=== PATIENT | female | born 1950 | race African-American/Black ===

== ENCOUNTER 2016-08-20 18:11 | Observation (INO) | payer MEDICARE ==
[~2016-08-20] VITALS: Ht 152.4 cm; Wt 86.7 kg
[~2016-08-20 18:11] MED LIST: AMLO5TAB2 PO; ASPI325T4 PO; CEFP200T PO; CETI10TA22 PO; CLOP75TA PO; FURO-68 PO; GABA-586 PO; HYDR-965 PO; INSU100I13 SQ; INSU100I17 SQ; LISI-334 PO; METO50TA10 PO; MONT10TA9 PO; MULT-658 PO; OMEP20TA63 PO; PANT40TA5 PO; SENN-37 PO; SIMV40TA3 PO
[2016-08-20] MEDS: IV NORMAL SALINE 1000ML BAG 1,000 ML IV SCH (18:30)
[2016-08-20 19:53] VITALS: BP 125/47
[2016-08-20] MEDS ORDERED: ACETYLCYSTEINE 20% ORAL SOLN 600 MG/3 ML SYRINGE. PO SCH (21:00)
[2016-08-20 22:17] LABS: BASO # 0.1 x10^3/uL (0.0-0.2); BASO % 1 % (0-3); EOS % 3 % (0-3); HEMATOCRIT 35.5 % (36.0-47.0); HEMOGLOBIN 11.5 g/dL (12.0-15.5); LYMPH # 1.8 x10^3/uL (1.0-4.8); LYMPH % 30 % (24-48); MEAN CORPUSCULAR HEMOGLOBIN 30 pg (25-35); MEAN CORPUSCULAR HGB CONC 32 g/dL (31-37); MEAN CORPUSCULAR VOLUME 93 fL (79-100); MONO % 5 % (0-9); NEUT % 61 % (31-73); PLATELET COUNT 161 x10^3/uL (140-400); RED BLOOD COUNT 3.84 x10^6/uL (3.50-5.40); RED CELL DISTRIBUTION WIDTH 13.7 % (11.5-14.5); WHITE BLOOD COUNT 6.2 x10^3/uL (4.0-11.0)
[2016-08-20 22:24] LABS: PROTHROMBIN TIME PATIENT 12.9 SEC (11.7-14.0)
[2016-08-20 22:42] LABS: CALCIUM 9.1 mg/dL (8.5-10.1); CREATININE 1.4 mg/dL (0.6-1.0); GFR 45.4
[2016-08-20 23:05] VITALS: BP 143/62
[2016-08-21] VITALS (12 sets, daily range): BP systolic 109–150; BP diastolic 56–85
[2016-08-21 06:46] LABS: CREATININE 1.1 mg/dL (0.6-1.0); GFR 59.9; POTASSIUM 4.1 mmol/L (3.5-5.1)
[2016-08-21] MEDS ORDERED: DEXTROSE 50% 25 GM / 50ML DISP.SYRIN. IV ONE (07:35)
--- NOTE | 2016-08-21 08:52 | PDOC ---
MODERATE SEDATION ASSESSMENT RISKS/ALTERNATIVES Risks/Alternatives Risks and alternatives of this type of sedation and procedure discussed with: RISK/ALTERNATIVES: Patient H & P ON CHART H & P H & P on chart and reviewed for co-morbid conditions and appropriate labs. H&P ON CHART: Yes STATUS PREG STATUS ASSESSED: N/A MEDS/ALLERGIES REVIEWED Meds/Allergies Reviewed Medications and Allergies including time and route of recently administered narcotics and sedatives. MEDS/ALLERGIES REVIEWED: Yes ASA RATING ASA RATING: II AIRWAY ASSESSMENT Airway Assessment Airway patency, oral function limitations, presence of caps, crowns, dentures, partials, and ability to extend neck assessed. AIRWAY ASSESSMENT: Yes MALLAMPATI SCORE MALLAMPATI SCORE: II PRE-SEDATION ASSESSMENT PRE-SEDATION ASSESSMENT: Yes RUSSELL YOUNG MD Aug 21, 2016 08:52
[2016-08-21] MEDS ORDERED: NITROGLYCERIN 4 MG/20 ML SYRINGE for CATH LAB. ONE (09:00)
[2016-08-21] MEDS ORDERED: DIPHENHYDRAMINE 50 MG/ML VIAL IVP ONE (09:30)
[2016-08-21] MEDS ORDERED: HEPARIN for IV BOLUS 10,000 UNIT/10 ML VIAL. IV ONE (09:30)
[2016-08-21] MEDS ORDERED: LIDOCAINE 2% 20 ML VIAL. IJ ONE (09:30)
[2016-08-21] MEDS ORDERED: IOHEXOL 300 MG/ML 100ML VIAL. IART ONE (09:30)
[2016-08-21] MEDS ORDERED: FENTANYL PF 250 MCG/5 ML VIAL. IV ONE (09:30)
[2016-08-21] MEDS ORDERED: DILTIAZEM IV PUSH 10 MG, NITROGLYCERIN 4MG SYRINGE 4 MG, HEPARIN S0DIUM 10,000 UNIT, VI... INT CAT ONE ×5 (09:30)
[2016-08-21] MEDS ORDERED: MIDAZOLAM HCL/PF 5 MG/5 ML VIAL IV ONE (09:30)
[2016-08-21] MEDS ORDERED: NITROGLYCERIN 200 MCG/2 ML SYRINGE FOR CATH/VASC LAB. IART ONE (10:00)
[2016-08-21] MEDS ORDERED: IODIXANOL 320 MG/ML 100 ML VIAL. IART ONE (10:15)
[2016-08-21] MEDS ORDERED: PROTAMINE 50 MG/5 ML VIAL. IV ONE (10:45)
[2016-08-21] MEDS: ACETYLCYSTEINE 20% ORAL SOLN 600 MG/3 ML SYRINGE. PO SCH ×2 (10:45→20:59)
[2016-08-21] MEDS ORDERED: ACETAMINOPHEN 325 MG TABLET. PO PRN (10:45)
--- NOTE | 2016-08-21 11:10 | CARD ---
APPROVED REPORT Patient StatusOUT-PATIENT Manager Trainee: Blake Zelaya RT (R) Procedure(s) performed: Successful balloon CIGAR HEAD STRINGER to the right superficial femoral artery via a right po pliteal access. INDICATION FOR PROCEDURE The indication(s) include : 66-year-old female with peripheral vascular disease with claudication rec ently underwent atherectomy/CIGAR HEAD STRINGER to left superficial femoral artery on 06/18/2017. She presented today for staged CIGAR HEAD STRINGER to the long chronic total occlusion involving her right superficial femoral artery vi a popliteal access.. PROCEDURE NARRATIVE After explaining the risks, benefits and alternative options, informed consent was obtained from shaka ent. Patient was brought to the cardiac Junior [employer] Teacher and her right popliteal fossa was prepped and draped in the usual fashion. 10 mL of 2% lidocaine was infiltrated into the skin and subcutaneous tissues f or local anesthesia. Under vascular ultrasound guidance, the popliteal artery was accessed and a 6 Fr ench sheath was inserted. The long chronic total occlusion involving the proximal and mid segments of the right superficial femoral artery was crossed with a 0.035 age glide wire with backup support fro m full [place] glide catheter. Contrast injections to the glide catheter conformed intraluminal positi on distally. The lesion was then dilated with 4.0 x 100 followed by 5.0 x 150 mm [place] balloon. Foll ow-up angiography showed resolution of the stenosis to 0%. The sheath in the right popliteal artery s eemed to be occluding the lumen and hence this was exchanged to a 5 [place] dilator and contrast injec tions were performed that revealed good three vessel runoff below the knee. There was slight extravas ation rom around the dilator secondary to the smaller [place] dilator used. Hemostasis was achieved us ing manual compression. 50 mg of intravenous protamine was administered at the end of the procedure to reverse heparin. Patient tolerated the procedure well. There were no immediate complications. Conclusion Successful balloon CIGAR HEAD STRINGER to the right superficial femoral artery via right popliteal access. Recommendations Risk factor modification.
[2016-08-21] MEDS: IV 1/2 NORMAL SALINE 1,000 ML IV SCH ×2 (11:51→21:00)
[2016-08-21] MEDS ORDERED: HYDROCODONE/APAP 5/325MG TABLET. PO PRN (13:00)
[2016-08-21] MEDS: HYDROCODONE/APAP 5/325MG TABLET. PO PRN ×2 (13:11→21:56)
[2016-08-21] MEDS: IV NORMAL SALINE 1000ML BAG 1,000 ML IV SCH (14:30)
[2016-08-22 03:20] VITALS: BP 156/71
[2016-08-22] MEDS: HYDROCODONE/APAP 5/325MG TABLET. PO PRN ×2 (04:47→10:17)
[2016-08-22 05:31] LABS: CREATININE 1.3 mg/dL (0.6-1.0); GFR 49.4; POTASSIUM 3.8 mmol/L (3.5-5.1)
[2016-08-22 07:00] VITALS: BP 146/58
[2016-08-22] MEDS: ACETYLCYSTEINE 20% ORAL SOLN 600 MG/3 ML SYRINGE. PO SCH (09:06)
[2016-08-22 11:00] VITALS: BP 189/75
--- NOTE | 2016-08-22 11:02 | PDOC3 ---
Discharge Summary Visit Information Date of Admission: Aug 20, 2016 Date of Discharge: Aug 22, 2016 Admitting Diagnosis Comment: 1. PAD with bilateral chronic total occlusions of SFa 2. CAD, [place] artery, without angina 3. hypertension, benign essential 4. hyperlipidemia 5. DM, II, insulin requiring, with diabetic nephropathy and retinopathy Final Diagnosis Problems Medical Problems: (1) Peripheral vascular disease; S/P LIBRARY CONSULTANT of right SFA via right popliteal approach Status: Acute 2. CAD, [place] artery, without angina 3. hypertension, benign essential 4. hyperlipidemia 5. DM, II, insulin requiring, with diabetic nephropathy and retinopathy Brief Hospital Course Allergies Allergies Coded Allergies Type Severity Reaction Last Updated Verified No Known Drug Allergies 05/13/16 No Vital Signs Vital Signs Date Time Temp Pulse Resp B/P Pulse Ox O2 Delivery O2 Flow Rate FiO2 08/22/16 10:17 Room Air 08/22/16 07:00 97.9 72 20 146/58 97 97.9 Lab Results Laboratory Tests Test 08/20/16 22:00 08/21/16 06:22 08/21/16 07:25 08/21/16 07:43 White Blood Count 6.2x10^3/uL (4.0-11.0) Red Blood Count 3.84x10^6/uL (3.50-5.40) Hemoglobin 11.5g/dL (12.0-15.5) Hematocrit 35.5% (36.0-47.0) Mean Corpuscular Volume 93fL (79-100) Mean Corpuscular Hemoglobin 30pg (25-35) Mean Corpuscular Hemoglobin Concent 32g/dL (31-37) Red Cell Distribution Width 13.7% (11.5-14.5) Platelet Count 161x10^3/uL (140-400) Neutrophils (%) (Auto) 61% (31-73) Lymphocytes (%) (Auto) 30% (24-48) Monocytes (%) (Auto) 5% (0-9) Eosinophils (%) (Auto) 3% (0-3) Basophils (%) (Auto) 1% (0-3) Neutrophils # (Auto) 3.8x10^3uL (1.8-7.7) Lymphocytes # (Auto) 1.8x10^3/uL (1.0-4.8) Monocytes # (Auto) 0.3x10^3/uL (0.0-1.1) Eosinophils # (Auto) 0.2x10^3/uL (0.0-0.7) Basophils # (Auto) 0.1x10^3/uL (0.0-0.2) Prothrombin Time 12.9SEC (11.7-14.0) Prothromb Time International Ratio 1.0 (0.8-1.1) Activated Partial Thromboplast Time 32SEC (24-38) Sodium Level 141mmol/L (136-145) 145mmol/L (136-145) Potassium Level 4.0mmol/L (3.5-5.1) 4.1mmol/L (3.5-5.1) Chloride Level 104mmol/L (98-107) 109mmol/L (98-107) Carbon Dioxide Level 31mmol/L (21-32) 27mmol/L (21-32) Anion Gap 6 (6-14) 9 (6-14) Blood Urea Nitrogen 29mg/dL (7-20) 25mg/dL (7-20) Creatinine 1.4mg/dL (0.6-1.0) 1.1mg/dL (0.6-1.0) Estimated GFR (Cockcroft-Gault) 45.4 59.9 Glucose Level 151mg/dL (70-99) 60mg/dL (70-99) Calcium Level 9.1mg/dL (8.5-10.1) 9.0mg/dL (8.5-10.1) Glucose (Fingerstick) 57mg/dL (70-99) 61mg/dL (70-99) Test 08/21/16 07:58 08/21/16 08:42 08/21/16 10:12 08/21/16 12:17 Glucose (Fingerstick) 128mg/dL (70-99) 122mg/dL (70-99) 108mg/dL (70-99) Activated Clotting Time 318sec (92-181) Test 08/21/16 17:21 08/21/16 20:53 08/22/16 04:07 08/22/16 07:58 Glucose (Fingerstick) 209mg/dL (70-99) 240mg/dL (70-99) 143mg/dL (70-99) Sodium Level 142mmol/L (136-145) Potassium Level 3.8mmol/L (3.5-5.1) Chloride Level 105mmol/L (98-107) Carbon Dioxide Level 29mmol/L (21-32) Anion Gap 8 (6-14) Blood Urea Nitrogen 17mg/dL (7-20) Creatinine 1.3mg/dL (0.6-1.0) Estimated GFR (Cockcroft-Gault) 49.4 Glucose Level 172mg/dL (70-99) Calcium Level 9.0mg/dL (8.5-10.1) Laboratory Tests Test 08/21/16 12:17 08/21/16 17:21 08/21/16 20:53 08/22/16 04:07 Glucose (Fingerstick) 108mg/dL (70-99) 209mg/dL (70-99) 240mg/dL (70-99) Sodium Level 142mmol/L (136-145) Potassium Level 3.8mmol/L (3.5-5.1) Chloride Level 105mmol/L (98-107) Carbon Dioxide Level 29mmol/L (21-32) Anion Gap 8 (6-14) Blood Urea Nitrogen 17mg/dL (7-20) Creatinine 1.3mg/dL (0.6-1.0) Estimated GFR (Cockcroft-Gault) 49.4 Glucose Level 172mg/dL (70-99) Calcium Level 9.0mg/dL (8.5-10.1) Test 08/22/16 07:58 Glucose (Fingerstick) 143mg/dL (70-99) Brief Hospital Course Ms. Iniguez is a 66 old female with with known PAD and previous LLE intervention in June 2016. At that time she was found to have bilateral chronic total occlusions of the SFa. The left side was treated then. She was admitted on for prehydration to reduce the risk of GEORGE due to her CKD history. She underwent LIBRARY CONSULTANT of the right SFa on 08/21/2016 via popliteal approach. Hydration and mucomyst continued post-procedure and she was monitored overnight. Cr was 1.4 on admission and is now 1.3. Popliteal site C/D/I. Foot warm with weakly palpable pulse. Discharge Information Condition at Discharge: Stable Follow Up: Weeks (4 weeks with cardiology as scheduled; 7 - 10 days with PCP) Disposition/Orders: D/C to Home Scheduled Amlodipine Besylate (Amlodipine Besylate) 5 MG PO DAILY (Reported) Aspirin (Aspirin) 1 TAB PO DAILY (Reported) Cetirizine Hcl (Zyrtec) 1 TAB PO DAILY (Reported) Clopidogrel Bisulfate (Clopidogrel) 75 MG PO DAILYWBKFT Gabapentin (Neurontin) 300 MG PO TID (Reported) Insulin Aspart (Novolog Flexpen) 13 UNIT SQ TIDAC (Reported) Insulin Glargine,Hum.rec.anlog (Lantus Solostar) 87 UNIT SQ DAILY (Reported) Lisinopril (Lisinopril) 1.5 TAB PO BID (Reported) Metoprolol Succinate (Metoprolol Succinate) 100 MG PO DAILY (Reported) Montelukast Sodium (Montelukast Sodium Tablet) 1 TAB PO DAILY (Reported) Multivits-Min/Fa/Lycopene/Lut (Centrum Silver Tablet) 1 TAB PO DAILY (Reported) Pantoprazole Sodium (Pantoprazole Sodium) 40 MG PO DAILYAC Sennosides/Docusate Sodium (Senokot-S Tablet) 1 TAB PO BID (Reported) Simvastatin (Simvastatin) 1 TAB PO QHS (Reported) Scheduled PRN Hydrocodone/Apap 7.5-325 ([place] 7.5-325 Tablet) 1 TAB PO Q4HRS PRN PRN PAIN ( Reported) Patient Instructions Patient Instructions GENERAL INSTRUCTIONS: 1. Your dressing should be removed prior to leaving the hospital. 2. It is OK to shower the day after your procedure. 3. If you received stents, be sure to carry your stent information card with you in your wallet/purse at all times. 4. Call the office immediately at [phone] if you notice any fever or if there is redness, worsening tenderness/pain, increased bruising, or drainage from the puncture site. 5. Should you have bleeding from the site, lie down immediately & put pressure on the site. The pressure should be hard enough to stop the bleeding. Have the nearest person call 91. DO NOT try to drive to the ER with active bleeding. 6. If you notice a change in color, coolness to touch, or loss of feeling in the affected extremity, come to the emergency room. Please have someone drive you or call 911 if no one is available. DO NOT drive yourself. 7. If you normally take glucophage (metformin), please do not take this medicine for 48 hours following your procedure. 8. DO NOT STOP TAKING YOUR PLAVIX OR ASPIRIN UNLESS IT IS CLEARED BY A COLLECTION SYSTEMS TECHNICIAN OF YOUR PLATE STACKER HAND AT OUR OFFICE. 9. QUIT SMOKING: the [place] [employer], [place] [employer], & [place] [employer] have cessation resources available on their websites 10. Please have someone available to drive you home from the hospital as you may be limited by sedation medications given during the procedure. Femoral (Groin) access: 1. Do no lifting, pushing, pulling, bending, stooping, or recurrent stair climbing for 10 days following your procedure. 2. Once past the first 10 days, do not do any HEAVY exertion or lifting for one week following the procedure. No gym workouts, running, lifting greater than a gallon of milk, etc 3. Do not submerge in bath or pool for one week. OK to drive 3 days following your procedure, but if going long distance, do not go alone & take hourly breaks to get out of car and walk around. Call the office at [phone] for any questions or concerns. MARYSE PUENTE APRN Aug 22, 2016 11:02
== END 2016-08-22 12:07 | disposition home or self-care (01) ==
LOC: INTOOBSV 18:11 → 2 SOUTH 18:11
PROVIDERS: ADMIT Internal Medicine Cardiovascular Disease; ATTEND Internal Medicine Cardiovascular Disease
DX: I25.10 Atherosclerotic heart disease of native coronary artery without angina pectoris (principal); I73.89 Other specified peripheral vascular diseases; I74.3 Embolism and thrombosis of arteries of the lower extremities; I10 Essential (primary) hypertension; E78.5 Hyperlipidemia, unspecified; E11.22 Type 2 diabetes mellitus with diabetic chronic kidney disease; E11.319 Type 2 diabetes mellitus with unspecified diabetic retinopathy without macular edema; E11.21 Type 2 diabetes mellitus with diabetic nephropathy; Z79.4 Long term (current) use of insulin; N18.9 Chronic kidney disease, unspecified; Z87.891 Personal history of nicotine dependence
CPT/HCPCS: 36415; 37224; 80048; 82947; 85027; 85347; 85610; 85730; 96374; 96375; 96376; C1725; C1769; C1892; G0378; G0379; J1200; J2250; J3010; J3490; J7030; J7042

== ENCOUNTER 2018-03-16 20:31 | Inpatient (IN) | payer MEDICARE ==
[~2018-03-16] VITALS: Ht 152.4 cm; Wt 94.1 kg
[~2018-03-16 20:31] MED LIST changes: -ASPI325T4 PO; +ASPI325T8 PO; -METO50TA10 PO; +METO50TA29 PO
[2018-03-16] MEDS ORDERED: IV NORMAL SALINE 1000ML BAG 1,000 ML IV SCH (21:00)
[2018-03-16 21:04] LABS: BASO % 1 % (0-3); EOS # 0.1 x10^3/uL (0.0-0.7); EOS % 1 % (0-3); HEMATOCRIT 40.1 % (36.0-47.0); HEMOGLOBIN 13.4 g/dL (12.0-15.5); LYMPH # 1.3 x10^3/uL (1.0-4.8); LYMPH % 20 % (24-48); MEAN CORPUSCULAR HEMOGLOBIN 31 pg (25-35); MEAN CORPUSCULAR HGB CONC 34 g/dL (31-37); MEAN CORPUSCULAR VOLUME 92 fL (79-100); MONO # 0.5 x10^3/uL (0.0-1.1); MONO % 7 % (0-9); NEUT # 4.7 x10^3uL (1.8-7.7); NEUT % 71 % (31-73); PLATELET COUNT 175 x10^3/uL (140-400); RED BLOOD COUNT 4.34 x10^6/uL (3.50-5.40); RED CELL DISTRIBUTION WIDTH 12.7 % (11.5-14.5); WHITE BLOOD COUNT 6.6 x10^3/uL (4.0-11.0)
[2018-03-16] MEDS: NITROGLYCERIN SUBLINGUAL 0.4 MG BOTTLE OF 25. SL PRN ×2 (21:09→23:22)
[2018-03-16 21:14] LABS: CALCIUM 9.8 mg/dL (8.5-10.1); CREATININE 1.6 mg/dL (0.6-1.0); GFR 38.8; POTASSIUM 4.1 mmol/L (3.5-5.1)
[2018-03-16 21:20] LABS: ALBUMIN 4.3 g/dL (3.4-5.0); MAGNESIUM 1.6 mg/dL (1.8-2.4); TOTAL BILIRUBIN 0.2 mg/dL (0.2-1.0); TOTAL PROTEIN 8.4 g/dL (6.4-8.2)
--- NOTE | 2018-03-16 21:34 | PHYS DOC ---
Past Medical History Past Medical History: Diabetes-Type I, High Cholesterol, Hypertension, NE Past Surgical History: No Surgical History Additional Past Surgical Histo: HEART CATH: DENIES STENTS Alcohol Use: None Drug Use: None Adult General Chief Complaint Chief Complaint: CHEST PAIN HPI HPI Patient is a 67-year-old female who presents with report of chest pain that started at about 5:00 this evening. Patient states that she had snuck out to get some [employer] and states that shortly after eating, she developed the chest pain. She denies any nausea, vomiting or diaphoresis. She states that at its onset, pain was about a 9 out of 10. She indicates that pain had continued until she got here to the emergency room and right now she states that she only has some very mild discomfort. She does indicate that she took an adult aspirin before coming to the emergency room. Patient does have a cardiac history and had a cardiac catheter back in 2016. Patient states that she had chewed 2 Pepcid completes at about 5:30 but that did not help with her pain. She indicates that there was no radiation of the pain. Review of Systems Review of Systems Constitutional: Denies fever or chills [] Respiratory: Denies cough or shortness of breath [] Cardiovascular: Complains of lower midsternal chest pain[] GI: Denies abdominal pain, nausea, vomiting or diarrhea [] Musculoskeletal: Denies back pain or joint pain [] Integument: Denies rash or skin lesions [] Neurologic: Denies headache, focal weakness or sensory changes [] All other systems were reviewed and found to be within normal limits, except as documented in this note. Current Medications Current Medications Current Medications Medications (Trade) Dose Ordered Sig/Jasmyne Start Time Stop Time Status Last Admin Dose Admin Heparin Sodium (Porcine) (Heparin Sodium) 4,000 unit 1X ONCE 03/16/18 21:45 03/16/18 21:46 DC Heparin Sodium/ Dextrose 500 ml @ 0 mls/hr CONT PRN 03/16/18 21:45 Insulin Human Regular (HumuLIN R VIAL) 10 unit 1X ONCE 03/16/18 21:45 03/16/18 21:46 DC Magnesium Sulfate/ Dextrose 100 ml @ 100 mls/hr 1X ONCE 03/16/18 21:45 03/16/18 22:44 03/16/18 21:55 100 MLS/HR Nitroglycerin (Nitrostat) 0.4 mg PRN Q5MIN PRN 03/16/18 21:00 03/17/18 20:59 03/16/18 21:09 0.4 MG Sodium Chloride 1,000 ml @ 250 mls/hr Q4H 03/16/18 21:00 18 00:59 03/16/18 21:09 250 MLS/HR Allergies Allergies Allergies Coded Allergies Type Severity Reaction Last Updated Verified No Known Drug Allergies 05/13/16 No Physical Exam Physical Exam Constitutional: Well developed, well nourished, no acute distress, non-toxic appearance. [] HENT: Normocephalic, atraumatic, bilateral external ears normal, oropharynx moist, no oral exudates, nose normal. [] Eyes: PERRLA, EOMI, conjunctiva normal, no discharge. [] Neck: Normal range of motion, no tenderness, supple, no stridor. [] Cardiovascular:Heart rate regular rhythm, no murmur [] Lungs & Thorax: Bilateral breath sounds clear to auscultation [] Abdomen: Bowel sounds normal, soft, no tenderness. [] Skin: Warm, dry, no erythema, no rash. [] Extremities: No tenderness, no cyanosis, no clubbing, ROM intact, no edema. [] Neurologic: Alert and oriented X 3, normal motor function, normal sensory function, no focal deficits noted. [] Current Patient Data Vital Signs Vital Signs Date Time Temp Pulse Resp B/P (MAP) Pulse Ox O2 Delivery O2 Flow Rate FiO2 03/16/18 21:30 98 138/65 (89) 96 Room Air 03/16/18 21:00 12 03/16/18 20:31 98.0 98.0 Lab Values Laboratory Tests Test 03/16/18 20:50 White Blood Count 6.6 x10^3/uL (4.0-11.0) Red Blood Count 4.34 x10^6/uL (3.50-5.40) Hemoglobin 13.4 g/dL (12.0-15.5) Hematocrit 40.1 % (36.0-47.0) Mean Corpuscular Volume 92 fL (79-100) Mean Corpuscular Hemoglobin 31 pg (25-35) Mean Corpuscular Hemoglobin Concent 34 g/dL (31-37) Red Cell Distribution Width 12.7 % (11.5-14.5) Platelet Count 175 x10^3/uL (140-400) Neutrophils (%) (Auto) 71 % (31-73) Lymphocytes (%) (Auto) 20 % (24-48) L Monocytes (%) (Auto) 7 % (0-9) Eosinophils (%) (Auto) 1 % (0-3) Basophils (%) (Auto) 1 % (0-3) Neutrophils # (Auto) 4.7 x10^3uL (1.8-7.7) Lymphocytes # (Auto) 1.3 x10^3/uL (1.0-4.8) Monocytes # (Auto) 0.5 x10^3/uL (0.0-1.1) Eosinophils # (Auto) 0.1 x10^3/uL (0.0-0.7) Basophils # (Auto) 0.0 x10^3/uL (0.0-0.2) Sodium Level 134 mmol/L (136-145) L Potassium Level 4.1 mmol/L (3.5-5.1) Chloride Level 96 mmol/L (98-107) L Carbon Dioxide Level 31 mmol/L (21-32) Anion Gap 7 (6-14) Blood Urea Nitrogen 26 mg/dL (7-20) H Creatinine 1.6 mg/dL (0.6-1.0) H Estimated GFR (Cockcroft-Gault) 38.8 BUN/Creatinine Ratio 16 (6-20) Glucose Level 454 mg/dL (70-99) H Calcium Level 9.8 mg/dL (8.5-10.1) Magnesium Level 1.6 mg/dL (1.8-2.4) L Total Bilirubin 0.2 mg/dL (0.2-1.0) Aspartate Amino Transferase (AST) 31 U/L (15-37) Alanine Aminotransferase (ALT) 33 U/L (14-59) Alkaline Phosphatase 92 U/L (46-116) Troponin I Quantitative 0.487 ng/mL (0.000-0.055) AN-Jtf-Y-Type Natriuretic Peptide 157 pg/mL (0-124) H Total Protein 8.4 g/dL (6.4-8.2) H Albumin 4.3 g/dL (3.4-5.0) Albumin/Globulin Ratio 1.0 (1.0-1.7) Lipase 140 U/L (73-393) Laboratory Tests 03/16/18 20:50 Laboratory Tests 03/16/18 20:50 EKG EKG [] Interpretation Time: EKG demonstrates normal sinus rhythm with rate of 92. There are nonspecific ST changes in the lateral limb and precordial leads Radiology/Procedures Radiology/Procedures [] Impressions: Chest x-ray demonstrates no acute process. Course & Med Decision Making Course & Med Decision Making Pertinent Labs and Imaging studies reviewed. (See chart for details) [] Dragon Disclaimer Dragon Disclaimer This electronic medical record was generated, in whole or in part, using a voice recognition dictation system. Departure Departure Impression: Primary Impression: Non-STEMI (non-ST elevated myocardial infarction) Disposition: 09 ADMITTED INPATIENT Admitting Physician: Stef Welch Condition: IMPROVED Referrals: STEF WELCH MD (PCP) KENYATTA BURLESON Jr. DO Mar 16, 2018 21:34
[2018-03-16] MEDS ORDERED: INSULIN REGULAR 100 UNIT/ML 3ML VIAL. IV ONE (21:45)
[2018-03-16] MEDS ORDERED: HEPARIN for IV BOLUS 10,000 UNIT/10 ML VIAL. IV ONE (21:45)
[2018-03-16] MEDS ORDERED: HEPARIN 25,000UTS/500ML PREMIX 500 ML IV PRN (21:45)
[2018-03-16] MEDS ORDERED: MAGNESIUM SULFATE 1GM 100 ML IV ONE (21:45)
[2018-03-16] MEDS ORDERED: MORPHINE SULFATE 2 MG/ML DISP.SYRIN. IV PRN (22:00)
[2018-03-16] MEDS ORDERED: ONDANSETRON PF 4 MG/2 ML VIAL. IV PRN (22:00)
[2018-03-16 23:11] VITALS: BP 122/73
[2018-03-16] MEDS ORDERED: HEPARIN for IV BOLUS 10,000 UNIT/10 ML VIAL. IV PRN (23:15)
[2018-03-16] MEDS: HEPARIN 25,000UTS/500ML PREMIX 500 ML IV PRN (23:35)
[2018-03-17] MEDS: IV NORMAL SALINE 1000ML BAG 1,000 ML IV SCH ×3 (00:23→14:43)
[2018-03-17] MEDS ORDERED: ASPIRIN 325 MG TABLET PO ONE (01:30)
[2018-03-17] MEDS ORDERED: LISINOPRIL 10 MG TABLET PO ONE (01:30)
[2018-03-17] MEDS ORDERED: METOPROLOL TART IMMED RELEASE 25 MG TABLET. PO ONE (01:30)
[2018-03-17] MEDS ORDERED: ATORVASTATIN CALCIUM 20 MG TABLET PO ONE (01:30)
[2018-03-17] MEDS ORDERED: DEXTROSE 50% 25 GM / 50ML DISP.SYRIN. IV PRN (01:30)
[2018-03-17] MEDS ORDERED: CLOPIDOGREL BISULFATE 75 MG TABLET PO ONE (01:30)
[2018-03-17] MEDS: INSULIN LISPRO 300 UNITS/3 ML INSULN.PEN. SQ SCH ×4 (01:54→17:07)
[2018-03-17 02:51] VITALS: BP 144/72
[2018-03-17] MEDS: NITROGLYCERIN SUBLINGUAL 0.4 MG BOTTLE OF 25. SL PRN ×2 (03:01→03:10)
[2018-03-17 03:07] VITALS: BP 131/66
--- NOTE | 2018-03-17 03:17 | EKG ---
[facility] [address] [place] [address] Test Date: 2018-03-17 Test Time: 03:10:04 Pat Name: GILBERT CHARLES Department: Room: 204 1 Gender: F Cold Header Operator: TUSHAR : 1950 Requested By: JARET LEVIN Order Number: [id number] Reading MD: Measurements Intervals [place] Rate: 78 P: 50 NC: 162 QRS: -17 QRSD: 78 T: 108 QT: 406 QTc: 467 Interpretive Statements SINUS RHYTHM LEFTWARD AXIS QRS(T) CONTOUR ABNORMALITY CONSIDER ANTEROSEPTAL MYOCARDIAL DAMAGE T ABNORMALITY IN HIGH LATERAL LEADS ABNORMAL ECG RI6.01 Compared to ECG 05/15/2016 08:11:17 Left-axis deviation now present T-wave abnormality still present
[2018-03-17 03:53] LABS: BASO # 0.1 x10^3/uL (0.0-0.2); BASO % 1 % (0-3); EOS # 0.1 x10^3/uL (0.0-0.7); EOS % 2 % (0-3); HEMOGLOBIN 12.5 g/dL (12.0-15.5); LYMPH % 33 % (24-48); MEAN CORPUSCULAR HEMOGLOBIN 32 pg (25-35); MEAN CORPUSCULAR HGB CONC 35 g/dL (31-37); MEAN CORPUSCULAR VOLUME 92 fL (79-100); MONO # 0.5 x10^3/uL (0.0-1.1); MONO % 9 % (0-9); NEUT # 3.4 x10^3uL (1.8-7.7); NEUT % 56 % (31-73); PLATELET COUNT 165 x10^3/uL (140-400); RED BLOOD COUNT 3.91 x10^6/uL (3.50-5.40); RED CELL DISTRIBUTION WIDTH 12.7 % (11.5-14.5); WHITE BLOOD COUNT 6.1 x10^3/uL (4.0-11.0)
[2018-03-17 04:33] LABS: CALCIUM 9.5 mg/dL (8.5-10.1); CREATININE 1.3 mg/dL (0.6-1.0); GFR 49.3; POTASSIUM 3.9 mmol/L (3.5-5.1)
--- NOTE | 2018-03-17 06:41 | EKG ---
[facility] [address] [place] [address] Test Date: 2018-03-16 Test Time: 20:36:41 Pat Name: GILBERT CHARLES Department: Room: Gender: F Care Administrative Tech: : 1950 Requested By: KENYATTA BURLESON Order Number: [id number] Reading MD: Measurements Intervals [place] Rate: 92 P: -3 CO: 142 QRS: -29 QRSD: 78 T: 98 QT: 360 QTc: 450 Interpretive Statements SINUS RHYTHM LEFTWARD AXIS CONSIDER LEFT VENTRICULAR HYPERTROPHY QRS(T) CONTOUR ABNORMALITY CONSIDER ANTEROLATERAL MYOCARDIAL DAMAGE POSSIBLY ABNORMAL ECG RI6.01 No previous ECG available for comparison
[2018-03-17 07:00] VITALS: BP 175/70
[2018-03-17] MEDS: CLOPIDOGREL BISULFATE 75 MG TABLET PO SCH (08:00)
--- NOTE | 2018-03-17 08:22 | RAD ---
EXAM:PORTABLE CHEST 1V DATE: 03/16/2018 8:48 PM CLINICAL INDICATION: chest pain today COMPARISON: None. FINDINGS: Respiratory motion artifact limits evaluation. The heart is not enlarged. Atherosclerotic calcifications of aorta are seen. Otherwise, mediastinal and hilar contours are normal. No focal parenchymal airspace opacity. No pleural effusion or pneumothorax. IMPRESSION: No radiographic evidence for acute cardiopulmonary process. Electronically signed by: Ruben Aldridge MD (03/17/2018 8:18 AM) [facility]
--- NOTE | 2018-03-17 08:35 | PDOC ---
NEL MATTHEWS APRN 03/17/18 0835: Provider Note Provider Note HP to be completed at the office. IMPRESSION: 1. NSTEMI 2. HTN 3. 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 HTN 5. CKD PLAN: NSTEMI - EKG in ER non specific changes - Troponin #3 10.623- admit 0.487 - Hep gtt - NPO for CC - cardiology consulted - possible CC today DM II - BS ER 454- 10u Humulin R Mg - 1gm IV Please see orders for further plan of care. STEF WELCH MD 03/17/18 0910: Provider Note Provider Note The patient was seen and examined by me. Chart reviewed and plan of care formulated. Discussed with, reviewed and agree with CHILDCARE WORKER's notes, plan of care and orders with modifications as necessary. For more details regarding further plans, please refer to the orders. NEL MATTHEWS APRN Mar 17, 2018 08:35 STEF WELCH MD Mar 17, 2018 09:10
[2018-03-17] MEDS: SENNOSIDES/DOCUSATE 8.6/50MG TABLET. PO SCH ×2 (09:00→21:37)
[2018-03-17] MEDS ORDERED: LISINOPRIL 10 MG TABLET PO SCH (09:00)
[2018-03-17] MEDS ORDERED: LUT PO SCH (09:00)
[2018-03-17] MEDS ORDERED: MULTIVITS MIN PO SCH (09:00)
[2018-03-17] MEDS ORDERED: LYCOPENE PO SCH (09:00)
[2018-03-17] MEDS ORDERED: GABAPENTIN 300 MG PO SCH (09:00)
[2018-03-17] MEDS ORDERED: [UNRECOGNIZED DRUG - OTHER] PO SCH (09:00)
[2018-03-17] MEDS ORDERED: METOPROLOL TART IMMED RELEASE 25 MG TABLET. PO SCH (09:00)
[2018-03-17] MEDS ORDERED: ASPIRIN 325 MG TABLET PO SCH (09:00)
--- NOTE | 2018-03-17 09:15 | PDOC2 ---
MARYSE PUENTE CARTON INSPECTOR 03/17/18 0915: CARDIAC CONSULT DATE OF CONSULT Date of Consult DATE: 03/17/18 TIME: 09:11 REASON FOR CONSULT Reason for Consult: NSTEMI REFERRING PHYSICIAN Referring Physician: BENJY SOURCE Source: Chart review, Patient HISTORY OF PRESENT ILLNESS HISTORY OF PRESENT ILLNESS 67 year old female who developed sharp substernal chest pain without radiation or associated symptoms while watching TV and eating [employer] takeout. Pain relieved with deep breathing exercise. Took OTC Pepcid without relief. EKG without acute changes and initial troponin was 0.48 with most recent level 10.6 and continuing to trend upward. Was started on heparin gtt overnight. One episode of CP overnight relieved with NTG. Patient previously with PTCA to RCA in 2015 with unsuccessful attempt to stent then. Has also undergone ADMINISTRATIVE ASST to bilateral SFA but failed to follow up in office. PAST MEDICAL HISTORY Cardiovascular: CAD (with prior PTCA to RCA - 2015), HTN, Hyperlipidemia, Other (PAD with ADMINISTRATIVE ASST to right SFA & atherectomy/ADMINISTRATIVE ASST to left SFA) GI: GERD Renal/: Chronic renal insuff Endocrine: Diabetes (type II) PAST SURGICAL HISTORY Past Surgical History: Other (see PMH) FAMILY HISTORY Family History: Heart Disease SOCIAL HISTORY Smoke: Quit ALCOHOL: none Drugs: None CURRENT MEDICATIONS CURRENT MEDICATIONS Current Medications Medications (Trade) Dose Ordered Sig/Jasmyne Route PRN Reason Start Time Stop Time Status Last Admin Dose Admin Nitroglycerin (Nitrostat) 0.4 mg PRN Q5MIN PRN SL CP RATING > 1/10 03/16/18 21:00 03/17/18 20:59 03/17/18 03:10 Sodium Chloride 1,000 ml @ 250 mls/hr Q4H IV 03/16/18 21:00 03/17/18 00:59 DC 03/16/18 21:09 Heparin Sodium (Porcine) (Heparin Sodium) 4,000 unit 1X ONCE IV 03/16/18 21:45 03/16/18 21:46 DC 03/16/18 21:59 Heparin Sodium/ Dextrose 500 ml @ 0 mls/hr CONT PRN IV SEE I/O RECORD 03/16/18 21:45 03/16/18 23:09 DC 03/16/18 22:00 Insulin Human Regular (HumuLIN R VIAL) 10 unit 1X ONCE IV 03/16/18 21:45 03/16/18 21:46 DC 03/16/18 22:01 Magnesium Sulfate/ Dextrose 100 ml @ 100 mls/hr 1X ONCE IV 03/16/18 21:45 03/16/18 22:44 DC 03/16/18 21:55 Sodium Chloride 1,000 ml @ 125 mls/hr Q8H IV 03/16/18 22:00 03/17/18 21:59 03/17/18 00:23 Heparin Sodium/ Dextrose 500 ml @ 0 mls/hr CONT PRN IV SEE I/O RECORD 03/16/18 23:15 03/16/18 23:35 Aspirin (Amanda Aspirin) 325 mg 1X ONCE PO 03/17/18 01:30 03/17/18 01:34 DC 03/17/18 01:49 Clopidogrel Bisulfate (Plavix) 75 mg 1X ONCE PO 03/17/18 01:30 03/17/18 01:36 DC 03/17/18 01:49 Metoprolol Tartrate (Lopressor) 12.5 mg 1X ONCE PO 03/17/18 01:30 03/17/18 01:37 DC 03/17/18 01:51 Atorvastatin Calcium (Lipitor) 20 mg ONCE ONCE PO 03/17/18 01:30 03/17/18 01:36 DC 03/17/18 01:48 Lisinopril (Prinivil) 10 mg 1X ONCE PO 03/17/18 01:30 03/17/18 01:37 DC 03/17/18 01:52 Insulin Human Lispro (HumaLOG) 0-5 UNITS TIDWMEALS SQ 03/17/18 01:30 03/17/18 01:54 ALLERGIES ALLERGIES: Coded Allergies: No Known Drug Allergies (Unverified , 05/13/16) PHYSICAL EXAM General: Alert, Oriented X3, Cooperative, No acute distress HEENT: Atraumatic Lungs: Clear to auscultation Heart: Normal S1, Normal S2, No murmurs, Other (no carotid bruits) Abdomen: Normal bowel sounds Extremities: No edema Skin: No rashes Neuro: Normal speech Psych/Mental Status: Mental status NL, Mood NL MUSCULOSKELETAL: No deformity VITALS VITALS Vital Signs Date Time Temp Pulse Resp B/P (MAP) Pulse Ox O2 Delivery O2 Flow Rate FiO2 03/17/18 07:00 98.1 81 18 175/70 (105) 98 Nasal Cannula 2.0 98.1 LABS Lab: Laboratory Tests Test 03/16/18 20:50 03/16/18 22:49 03/16/18 23:30 03/17/18 00:42 White Blood Count 6.6 x10^3/uL (4.0-11.0) Red Blood Count 4.34 x10^6/uL (3.50-5.40) Hemoglobin 13.4 g/dL (12.0-15.5) Hematocrit 40.1 % (36.0-47.0) Mean Corpuscular Volume 92 fL (79-100) Mean Corpuscular Hemoglobin 31 pg (25-35) Mean Corpuscular Hemoglobin Concent 34 g/dL (31-37) Red Cell Distribution Width 12.7 % (11.5-14.5) Platelet Count 175 x10^3/uL (140-400) Neutrophils (%) (Auto) 71 % (31-73) Lymphocytes (%) (Auto) 20 % (24-48) Monocytes (%) (Auto) 7 % (0-9) Eosinophils (%) (Auto) 1 % (0-3) Basophils (%) (Auto) 1 % (0-3) Neutrophils # (Auto) 4.7 x10^3uL (1.8-7.7) Lymphocytes # (Auto) 1.3 x10^3/uL (1.0-4.8) Monocytes # (Auto) 0.5 x10^3/uL (0.0-1.1) Eosinophils # (Auto) 0.1 x10^3/uL (0.0-0.7) Basophils # (Auto) 0.0 x10^3/uL (0.0-0.2) Sodium Level 134 mmol/L (136-145) Potassium Level 4.1 mmol/L (3.5-5.1) Chloride Level 96 mmol/L (98-107) Carbon Dioxide Level 31 mmol/L (21-32) Anion Gap 7 (6-14) Blood Urea Nitrogen 26 mg/dL (7-20) Creatinine 1.6 mg/dL (0.6-1.0) Estimated GFR (Cockcroft-Gault) 38.8 BUN/Creatinine Ratio 16 (6-20) Glucose Level 454 mg/dL (70-99) Calcium Level 9.8 mg/dL (8.5-10.1) Magnesium Level 1.6 mg/dL (1.8-2.4) Total Bilirubin 0.2 mg/dL (0.2-1.0) Aspartate Amino Transf (AST/SGOT) 31 U/L (15-37) Alanine Aminotransferase (ALT/SGPT) 33 U/L (14-59) Alkaline Phosphatase 92 U/L (46-116) Troponin I Quantitative 0.487 ng/mL (0.000-0.055) 7.956 ng/mL (0.000-0.055) HI-Lex-F-Type Natriuretic Peptide 157 pg/mL (0-124) Total Protein 8.4 g/dL (6.4-8.2) Albumin 4.3 g/dL (3.4-5.0) Albumin/Globulin Ratio 1.0 (1.0-1.7) Lipase 140 U/L (73-393) Glucose (Fingerstick) 322 mg/dL (70-99) 304 mg/dL (70-99) Test 03/17/18 01:49 03/17/18 03:30 03/17/18 06:15 03/17/18 07:24 Glucose (Fingerstick) 251 mg/dL (70-99) 180 mg/dL (70-99) White Blood Count 6.1 x10^3/uL (4.0-11.0) Red Blood Count 3.91 x10^6/uL (3.50-5.40) Hemoglobin 12.5 g/dL (12.0-15.5) Hematocrit 36.0 % (36.0-47.0) Mean Corpuscular Volume 92 fL (79-100) Mean Corpuscular Hemoglobin 32 pg (25-35) Mean Corpuscular Hemoglobin Concent 35 g/dL (31-37) Red Cell Distribution Width 12.7 % (11.5-14.5) Platelet Count 165 x10^3/uL (140-400) Neutrophils (%) (Auto) 56 % (31-73) Lymphocytes (%) (Auto) 33 % (24-48) Monocytes (%) (Auto) 9 % (0-9) Eosinophils (%) (Auto) 2 % (0-3) Basophils (%) (Auto) 1 % (0-3) Neutrophils # (Auto) 3.4 x10^3uL (1.8-7.7) Lymphocytes # (Auto) 2.0 x10^3/uL (1.0-4.8) Monocytes # (Auto) 0.5 x10^3/uL (0.0-1.1) Eosinophils # (Auto) 0.1 x10^3/uL (0.0-0.7) Basophils # (Auto) 0.1 x10^3/uL (0.0-0.2) Sodium Level 137 mmol/L (136-145) Potassium Level 3.9 mmol/L (3.5-5.1) Chloride Level 103 mmol/L (98-107) Carbon Dioxide Level 27 mmol/L (21-32) Anion Gap 7 (6-14) Blood Urea Nitrogen 24 mg/dL (7-20) Creatinine 1.3 mg/dL (0.6-1.0) Estimated GFR (Cockcroft-Gault) 49.3 Glucose Level 220 mg/dL (70-99) Calcium Level 9.5 mg/dL (8.5-10.1) Troponin I Quantitative 10.623 ng/mL (0.000-0.055) Triglycerides Level 232 mg/dL (0-150) Cholesterol Level 180 mg/dL (0-200) LDL Cholesterol, Calculated 89 mg/dL (0-100) VLDL Cholesterol, Calculated 46 mg/dL (0-40) Non-HDL Cholesterol Calculated 135 mg/dL (0-129) HDL Cholesterol 45 mg/dL (40-60) Cholesterol/HDL Ratio 4.0 Heparin Anti-Xa Act, Unfractionated 0.41 IU/mL (0.30-0.70) IMAGES IMAGES CXR: FINDINGS: Respiratory motion artifact limits evaluation. The heart is not enlarged. Atherosclerotic calcifications of aorta are seen. Otherwise, mediastinal and hilar contours are normal. No focal parenchymal airspace opacity. No pleural effusion or pneumothorax. IMPRESSION: No radiographic evidence for acute cardiopulmonary process. EKG EKG SR; no acute changes ECHOCARDIOGRAM ECHOCARDIOGRAM 05/2016: TTE: Posterobasal wall hypokinesis. The Ejection Fraction is estimated at 55-60%. Moderate mitral regurgitation. Mild tricuspid regurgitation. There is mild pulmonary hypertension. The PA pressure was estimated at 40 mmHg. There is no evidence of significant pericardial effusion. HEART CATH HEART CATH 05/2016: FINDINGS 1. Hemodynamics: Left ventricular end-diastolic pressure 22 mmHg. No pullback gradient across the aortic valve. 2. Coronary angiography: a. The left main coronary artery arose from the left sinus of Valsalva, gave rise to the left anterior descending and left circumflex arteries and did not show any significant stenosis. b. The left anterior descending artery showed moderate diffuse disease in the very distal segment. c. The left circumflex artery was a medium caliber vessel that showed complete occlusion in the midsegment. This appeared to be the culprit vessel for patient 's non-STEMI. d. The right coronary artery was a medium caliber vessel arising from the right sinus of Valsalva that showed a long 80-90% stenosis in the midsegment with areas of ectasia within the lesion. Conclusion 1. Two-vessel coronary artery disease 2. Successful PTCA to the right coronary artery ASSESSMENT/PLAN ASSESSMENT/PLAN 1. NSTEMI --no acute changes in EKG --troponin levels continue to trend upward, repeat now --started on heparin gtt --TTE to evaluate for valvular disease and assess LVEF --cardiac catheterization discussed with patient and she is agreeable 2. CKD --Cr 1.6 in ER; down to 1.3 today --continue IV fluids for hydration pre-cath 3. HTN --controlled with meds 4. HLD --check FLP --continue statin therapy 5. DM, II, uncontrolled --non-compliant with dietary restrictions --check A1C --defer to primary service RUSSELL YOUNG MD 03/17/18 3802: CARDIAC CONSULT ASSESSMENT/PLAN ASSESSMENT/PLAN Patient seen and examined. Agree with AIRCRAFT CLEANER's assessment and plan. Agree with cardiac catheterization and possible angioplasty tomorrow for patient 's non-STEMI Continue heparin infusion per protocol 2-D echo showed normal LV systolic function PAD status stable Continue current medical regimen Thank you for your consultation MARYSE PUENTE APRN Mar 17, 2018 09:15 RUSSELL YOUNG MD Mar 17, 2018 17:42
[2018-03-17] MEDS: MONTELUKAST SODIUM 10 MG TABLET. PO SCH (09:18)
[2018-03-17] MEDS: INSULIN GLARGINE 300 UNITS/3 ML INSULN.PEN. SQ SCH ×2 (09:20→21:40)
[2018-03-17] MEDS: amLODIPine BESYLATE 5 MG TABLET PO SCH ×2 (09:40→14:42)
[2018-03-17] MEDS: LISINOPRIL 10 MG TABLET PO SCH ×3 (09:41→21:28)
--- NOTE | 2018-03-17 09:48 | PDOC1 ---
HISTORY AND PHYSICAL Chief Complaint Chief Complaint This 67 year old female has been admitted with a chief complaint of chest pain. The onset of chest pain was yesterday 5:00pm 04/14. Trial Pepcid OTC did not help. No accompanying symptoms. Pain was located sternal non radiating. She took ASA 325mg and presented to the ER. Troponin was mildly elevated with EKG non specific ST changes. She was started on Heparin infusion. Her BS was over 400 and she was given Regular insulin 10units sub q. SHe has been admitted to [facility] and cardiology is consulted. Problem List Problems Medical Problems: (1) Non-STEMI (non-ST elevated myocardial infarction) Status: Acute Past Medical History Cardiovascular: CAD (with prior PTCA to RCA - 2015), HTN, Hyperlipidemia, Other (PAD with SLAG PRODUCTION WORKER to right SFA & atherectomy/SLAG PRODUCTION WORKER to left SFA) ENT: Allergic Rhinitis Endocrine: Diabetes (Type II neuropathy CKD insulin chronic with hyperglycemia ; retinopathy DM ) Past Surgical History PSH PTCA RCA, see PAD above Past Family History Family History: Cancer (Prostate Father ), Coronary Artery Disease (Sister ), Diabetes (Mother ), Heart Disease, Hypertension (Mother , Sister ) Past Social History PSH , former smoker, no h/o ETOH or illicit drug use. Review of Symptoms Review of Symptoms A 14 point ROS was completed with the following noted as positive: Per HPI Other systems reviewed and negative. Medications Reviewed and reconciled. Allergy Allergies Coded Allergies Type Severity Reaction Last Updated Verified No Known Drug Allergies 05/13/16 No Physical Exam Physical Exam General appearance - alert,well appearing, and in no distress and oriented to person, place, and time Mental Status - alert, oriented to person, place, and time, affect appropriate to mood Head - normal Chest - clear to auscultation, no wheezes, rales or rhonchi, symmetric air entry Heart - S1 and S2 normal Abdomen - soft, nontender, nondistended, no masses or organomegaly Neurological - alert and oriented Musculoskeletal - no muscular tenderness noted Extremities - no pedal edema Skin - warm and dry VTE Prophylaxis Ordered VTE Prophylaxis Devices: No VTE Pharmacological Prophylaxi: Yes (Heparin gtt ) Assessment Labs Laboratory Tests Test 03/16/18 20:50 03/16/18 22:49 03/16/18 23:30 03/17/18 00:42 White Blood Count 6.6 x10^3/uL (4.0-11.0) Red Blood Count 4.34 x10^6/uL (3.50-5.40) Hemoglobin 13.4 g/dL (12.0-15.5) Hematocrit 40.1 % (36.0-47.0) Mean Corpuscular Volume 92 fL (79-100) Mean Corpuscular Hemoglobin 31 pg (25-35) Mean Corpuscular Hemoglobin Concent 34 g/dL (31-37) Red Cell Distribution Width 12.7 % (11.5-14.5) Platelet Count 175 x10^3/uL (140-400) Neutrophils (%) (Auto) 71 % (31-73) Lymphocytes (%) (Auto) 20 % (24-48) Monocytes (%) (Auto) 7 % (0-9) Eosinophils (%) (Auto) 1 % (0-3) Basophils (%) (Auto) 1 % (0-3) Neutrophils # (Auto) 4.7 x10^3uL (1.8-7.7) Lymphocytes # (Auto) 1.3 x10^3/uL (1.0-4.8) Monocytes # (Auto) 0.5 x10^3/uL (0.0-1.1) Eosinophils # (Auto) 0.1 x10^3/uL (0.0-0.7) Basophils # (Auto) 0.0 x10^3/uL (0.0-0.2) Sodium Level 134 mmol/L (136-145) Potassium Level 4.1 mmol/L (3.5-5.1) Chloride Level 96 mmol/L (98-107) Carbon Dioxide Level 31 mmol/L (21-32) Anion Gap 7 (6-14) Blood Urea Nitrogen 26 mg/dL (7-20) Creatinine 1.6 mg/dL (0.6-1.0) Estimated GFR (Cockcroft-Gault) 38.8 BUN/Creatinine Ratio 16 (6-20) Glucose Level 454 mg/dL (70-99) Calcium Level 9.8 mg/dL (8.5-10.1) Magnesium Level 1.6 mg/dL (1.8-2.4) Total Bilirubin 0.2 mg/dL (0.2-1.0) Aspartate Amino Transf (AST/SGOT) 31 U/L (15-37) Alanine Aminotransferase (ALT/SGPT) 33 U/L (14-59) Alkaline Phosphatase 92 U/L (46-116) Troponin I Quantitative 0.487 ng/mL (0.000-0.055) 7.956 ng/mL (0.000-0.055) KS-Nkd-R-Type Natriuretic Peptide 157 pg/mL (0-124) Total Protein 8.4 g/dL (6.4-8.2) Albumin 4.3 g/dL (3.4-5.0) Albumin/Globulin Ratio 1.0 (1.0-1.7) Lipase 140 U/L (73-393) Glucose (Fingerstick) 322 mg/dL (70-99) 304 mg/dL (70-99) Test 03/17/18 01:49 03/17/18 03:30 03/17/18 06:15 03/17/18 07:24 Glucose (Fingerstick) 251 mg/dL (70-99) 180 mg/dL (70-99) White Blood Count 6.1 x10^3/uL (4.0-11.0) Red Blood Count 3.91 x10^6/uL (3.50-5.40) Hemoglobin 12.5 g/dL (12.0-15.5) Hematocrit 36.0 % (36.0-47.0) Mean Corpuscular Volume 92 fL (79-100) Mean Corpuscular Hemoglobin 32 pg (25-35) Mean Corpuscular Hemoglobin Concent 35 g/dL (31-37) Red Cell Distribution Width 12.7 % (11.5-14.5) Platelet Count 165 x10^3/uL (140-400) Neutrophils (%) (Auto) 56 % (31-73) Lymphocytes (%) (Auto) 33 % (24-48) Monocytes (%) (Auto) 9 % (0-9) Eosinophils (%) (Auto) 2 % (0-3) Basophils (%) (Auto) 1 % (0-3) Neutrophils # (Auto) 3.4 x10^3uL (1.8-7.7) Lymphocytes # (Auto) 2.0 x10^3/uL (1.0-4.8) Monocytes # (Auto) 0.5 x10^3/uL (0.0-1.1) Eosinophils # (Auto) 0.1 x10^3/uL (0.0-0.7) Basophils # (Auto) 0.1 x10^3/uL (0.0-0.2) Sodium Level 137 mmol/L (136-145) Potassium Level 3.9 mmol/L (3.5-5.1) Chloride Level 103 mmol/L (98-107) Carbon Dioxide Level 27 mmol/L (21-32) Anion Gap 7 (6-14) Blood Urea Nitrogen 24 mg/dL (7-20) Creatinine 1.3 mg/dL (0.6-1.0) Estimated GFR (Cockcroft-Gault) 49.3 Glucose Level 220 mg/dL (70-99) Calcium Level 9.5 mg/dL (8.5-10.1) Troponin I Quantitative 10.623 ng/mL (0.000-0.055) Triglycerides Level 232 mg/dL (0-150) Cholesterol Level 180 mg/dL (0-200) LDL Cholesterol, Calculated 89 mg/dL (0-100) VLDL Cholesterol, Calculated 46 mg/dL (0-40) Non-HDL Cholesterol Calculated 135 mg/dL (0-129) HDL Cholesterol 45 mg/dL (40-60) Cholesterol/HDL Ratio 4.0 Heparin Anti-Xa Act, Unfractionated 0.41 IU/mL (0.30-0.70) Laboratory Tests Test 03/16/18 20:50 03/16/18 22:49 03/16/18 23:30 03/17/18 00:42 White Blood Count 6.6 x10^3/uL (4.0-11.0) Red Blood Count 4.34 x10^6/uL (3.50-5.40) Hemoglobin 13.4 g/dL (12.0-15.5) Hematocrit 40.1 % (36.0-47.0) Mean Corpuscular Volume 92 fL (79-100) Mean Corpuscular Hemoglobin 31 pg (25-35) Mean Corpuscular Hemoglobin Concent 34 g/dL (31-37) Red Cell Distribution Width 12.7 % (11.5-14.5) Platelet Count 175 x10^3/uL (140-400) Neutrophils (%) (Auto) 71 % (31-73) Lymphocytes (%) (Auto) 20 % (24-48) Monocytes (%) (Auto) 7 % (0-9) Eosinophils (%) (Auto) 1 % (0-3) Basophils (%) (Auto) 1 % (0-3) Neutrophils # (Auto) 4.7 x10^3uL (1.8-7.7) Lymphocytes # (Auto) 1.3 x10^3/uL (1.0-4.8) Monocytes # (Auto) 0.5 x10^3/uL (0.0-1.1) Eosinophils # (Auto) 0.1 x10^3/uL (0.0-0.7) Basophils # (Auto) 0.0 x10^3/uL (0.0-0.2) Sodium Level 134 mmol/L (136-145) Potassium Level 4.1 mmol/L (3.5-5.1) Chloride Level 96 mmol/L (98-107) Carbon Dioxide Level 31 mmol/L (21-32) Anion Gap 7 (6-14) Blood Urea Nitrogen 26 mg/dL (7-20) Creatinine 1.6 mg/dL (0.6-1.0) Estimated GFR (Cockcroft-Gault) 38.8 BUN/Creatinine Ratio 16 (6-20) Glucose Level 454 mg/dL (70-99) Calcium Level 9.8 mg/dL (8.5-10.1) Magnesium Level 1.6 mg/dL (1.8-2.4) Total Bilirubin 0.2 mg/dL (0.2-1.0) Aspartate Amino Transf (AST/SGOT) 31 U/L (15-37) Alanine Aminotransferase (ALT/SGPT) 33 U/L (14-59) Alkaline Phosphatase 92 U/L (46-116) Troponin I Quantitative 0.487 ng/mL (0.000-0.055) 7.956 ng/mL (0.000-0.055) CU-Hms-M-Type Natriuretic Peptide 157 pg/mL (0-124) Total Protein 8.4 g/dL (6.4-8.2) Albumin 4.3 g/dL (3.4-5.0) Albumin/Globulin Ratio 1.0 (1.0-1.7) Lipase 140 U/L (73-393) Glucose (Fingerstick) 322 mg/dL (70-99) 304 mg/dL (70-99) Test 03/17/18 01:49 03/17/18 03:30 03/17/18 06:15 03/17/18 07:24 Glucose (Fingerstick) 251 mg/dL (70-99) 180 mg/dL (70-99) White Blood Count 6.1 x10^3/uL (4.0-11.0) Red Blood Count 3.91 x10^6/uL (3.50-5.40) Hemoglobin 12.5 g/dL (12.0-15.5) Hematocrit 36.0 % (36.0-47.0) Mean Corpuscular Volume 92 fL (79-100) Mean Corpuscular Hemoglobin 32 pg (25-35) Mean Corpuscular Hemoglobin Concent 35 g/dL (31-37) Red Cell Distribution Width 12.7 % (11.5-14.5) Platelet Count 165 x10^3/uL (140-400) Neutrophils (%) (Auto) 56 % (31-73) Lymphocytes (%) (Auto) 33 % (24-48) Monocytes (%) (Auto) 9 % (0-9) Eosinophils (%) (Auto) 2 % (0-3) Basophils (%) (Auto) 1 % (0-3) Neutrophils # (Auto) 3.4 x10^3uL (1.8-7.7) Lymphocytes # (Auto) 2.0 x10^3/uL (1.0-4.8) Monocytes # (Auto) 0.5 x10^3/uL (0.0-1.1) Eosinophils # (Auto) 0.1 x10^3/uL (0.0-0.7) Basophils # (Auto) 0.1 x10^3/uL (0.0-0.2) Sodium Level 137 mmol/L (136-145) Potassium Level 3.9 mmol/L (3.5-5.1) Chloride Level 103 mmol/L (98-107) Carbon Dioxide Level 27 mmol/L (21-32) Anion Gap 7 (6-14) Blood Urea Nitrogen 24 mg/dL (7-20) Creatinine 1.3 mg/dL (0.6-1.0) Estimated GFR (Cockcroft-Gault) 49.3 Glucose Level 220 mg/dL (70-99) Calcium Level 9.5 mg/dL (8.5-10.1) Troponin I Quantitative 10.623 ng/mL (0.000-0.055) Triglycerides Level 232 mg/dL (0-150) Cholesterol Level 180 mg/dL (0-200) LDL Cholesterol, Calculated 89 mg/dL (0-100) VLDL Cholesterol, Calculated 46 mg/dL (0-40) Non-HDL Cholesterol Calculated 135 mg/dL (0-129) HDL Cholesterol 45 mg/dL (40-60) Cholesterol/HDL Ratio 4.0 Heparin Anti-Xa Act, Unfractionated 0.41 IU/mL (0.30-0.70) Plan Plan FINAL DIAGNOSIS NSTEMI with h/o CAD PTCA RCA 2015 HTN DM II 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 Mg - 1gm IV CKD II - office Sep B/C 24/1.23 Home insulin: Lantus 87u bid Novolog 20u tid AC Please see orders for further plan of care. For more details regarding further plans, please refer to the orders. NEL MATTHEWS DOCENT COORDINATOR Mar 17, 2018 09:48
[2018-03-17] MEDS: ASPIRIN 325 MG TABLET PO SCH (09:51)
[2018-03-17] MEDS ORDERED: CETIRIZINE HCL 10 MG TABLET. PO SCH (10:00)
[2018-03-17] MEDS ORDERED: METOPROLOL SUCC 24HR ER 100 MG TAB.ER.24H. PO SCH (10:00)
[2018-03-17] MEDS: METOPROLOL TART IMMED RELEASE 50 MG TABLET. PO SCH ×2 (11:00→21:29)
[2018-03-17] MEDS: ANTI-COAG MONITOR BY PHARMACY. MC PRN (11:28)
[2018-03-17] MEDS: hydroCHLOROthiazide 12.5 MG CAPSULE PO SCH (11:56)
[2018-03-17] MEDS: PANTOPRAZOLE 40 MG TABLET.DR. PO SCH (11:56)
[2018-03-17 12:45] LABS: PROTHROMBIN TIME PATIENT 12.4 SEC (11.7-14.0)
--- NOTE | 2018-03-17 12:53 | CARD ---
MR#: [id number] Date of Study: 03/17/2018 Ordering Physician: MARYSE PUENTE, Referring Physician: STEF WELCH, Tech: Georgette Meredith APPROVED REPORT EXAM: Two-dimensional and M-mode echocardiogram with Doppler and color Doppler. Other Information Quality : GoodHR: 74bpm INDICATION Non STEMI 2D DIMENSIONS Left Atrium(2D)3.5 (1.6-4.0cm)IVSd1.2 (0.7-1.1cm) Aortic Root(2D)2.7 (2.0-3.7cm)LVDd5.0 (3.9-5.9cm) LVOT Diameter2.0 (1.8-2.4cm)PWd1.0 (0.7-1.1cm) LVDs3.4 (2.5-4.0cm)FS (%) 32.8 % SV71.8 ml Aortic Valve AoV Peak Devan.147.5cm/sAoV VTI33.8cm AO Peak GR.8.7mmHgLVOT Peak Devan.92.6cm/s AO Mean GR.4mmHgAVA (VMAX)1.88cm2 NESSA (VTI)2.10cm2 Mitral Valve MV E Tzgygjte171.6cm/sMV DECEL [id number] MV A Hswrvlch017.0cm/sE/A Ratio0.8 Pulmonary Vein PVa [id number] LEFT VENTRICLE The left ventricle is normal size. There is normal left ventricular wall thickness. The left ventricu lar systolic function is normal and the ejection fraction is within normal range. The Ejection Fracti on is 55-60%. There is normal LV segmental wall motion. Transmitral Doppler flow pattern is mildly ab normal. RIGHT VENTRICLE The right ventricle is normal size. There is normal right ventricular wall thickness. The right ventr icular systolic function is normal. ATRIA The left atrium size is normal. The right atrium size is normal. AORTIC VALVE The aortic valve is thickened but opens well. Doppler and Color Flow revealed trace aortic regurgitat ion. There is no significant aortic valvular stenosis. MITRAL VALVE The mitral valve is thickened but opens well. There is no mitral valve stenosis. Doppler and Color-fl ow revealed trace mitral regurgitation. TRICUSPID VALVE The tricuspid valve is normal in structure and function. Doppler and Color Flow revealed trace tricus pid regurgitation. PULMONIC VALVE The pulmonary valve is normal in structure and function. Doppler and Color Flow revealed trace pulmon ic valvular regurgitation. GREAT VESSELS The aortic root is normal in size. The IVC is normal in size and collapses >50% with inspiration. PERICARDIAL EFFUSION There is no evidence of significant pericardial effusion. Critical Notification Critical Value: No <Conclusion> The left ventricle is normal size. The left ventricular systolic function is normal and the ejection fraction is within normal range. The Ejection Fraction is 55-60%. There is no significant aortic valvular stenosis. Doppler and Color Flow revealed trace aortic regurgitation. Doppler and Color-flow revealed trace mitral regurgitation. Doppler and Color Flow revealed trace tricuspid regurgitation. There is no evidence of significant pericardial effusion. Signed by : Raphael Waters MD Electronically Approved : 03/17/2018 12:52:10
[2018-03-17 13:19] LABS: HEMOGLOBIN A1C 9.5 % (4.8-5.6)
[2018-03-17] MEDS: GABAPENTIN 300 MG CAPSULE. PO SCH ×2 (14:41→21:26)
[2018-03-17 14:53] VITALS: BP 203/100
[2018-03-17] MEDS ORDERED: INSULIN LISPRO 300 UNITS/3 ML INSULN.PEN. SQ ONE (16:45)
[2018-03-17 19:48] VITALS: BP 157/76
[2018-03-17] MEDS: HYDROcodone/APAP 7.5/325MG 1 TAB TABLET PO PRN (21:26)
[2018-03-17] MEDS: CETIRIZINE HCL 10 MG TABLET. PO SCH (21:26)
[2018-03-17] MEDS: ATORVASTATIN CALCIUM 20 MG TABLET PO SCH (21:26)
[2018-03-17] MEDS: HEPARIN 25,000UTS/500ML PREMIX 500 ML IV PRN (21:39)
[2018-03-17 22:47] VITALS: BP 133/76
[2018-03-18] VITALS (15 sets, daily range): BP systolic 94–147; BP diastolic 49–80
[2018-03-18 02:43] LABS: BASO # 0.1 x10^3/uL (0.0-0.2); BASO % 1 % (0-3); EOS # 0.2 x10^3/uL (0.0-0.7); EOS % 3 % (0-3); HEMATOCRIT 38.6 % (36.0-47.0); HEMOGLOBIN 13.1 g/dL (12.0-15.5); LYMPH # 2.7 x10^3/uL (1.0-4.8); LYMPH % 41 % (24-48); MEAN CORPUSCULAR HEMOGLOBIN 31 pg (25-35); MEAN CORPUSCULAR HGB CONC 34 g/dL (31-37); MEAN CORPUSCULAR VOLUME 92 fL (79-100); MONO # 0.5 x10^3/uL (0.0-1.1); MONO % 8 % (0-9); NEUT # 3.2 x10^3uL (1.8-7.7); NEUT % 48 % (31-73); PLATELET COUNT 179 x10^3/uL (140-400); RED CELL DISTRIBUTION WIDTH 12.9 % (11.5-14.5); WHITE BLOOD COUNT 6.6 x10^3/uL (4.0-11.0)
[2018-03-18 02:52] LABS: CALCIUM 9.5 mg/dL (8.5-10.1); CREATININE 1.2 mg/dL (0.6-1.0); GFR 54.1; MAGNESIUM 1.3 mg/dL (1.8-2.4)
[2018-03-18] MEDS: HYDROcodone/APAP 7.5/325MG 1 TAB TABLET PO PRN ×3 (04:49→23:10)
[2018-03-18] MEDS ORDERED: LIDOCAINE 1% PF 30 ML VIAL. ONE (08:10)
[2018-03-18] MEDS ORDERED: IODIXANOL 320 MG/ML 100 ML VIAL. ONE (08:10)
--- NOTE | 2018-03-18 08:14 | PDOC ---
NEL MATTHEWS HAT LINER 03/18/18 0814: IM PROGRESS NOTES- Subjective Subjective no CP, neuropathic pain feet and behind knees. Objective Objective no distress Vitals Vital Signs Date Time Temp Pulse Resp B/P (MAP) Pulse Ox O2 Delivery O2 Flow Rate FiO2 03/18/18 05:49 20 03/18/18 02:38 98.3 64 147/72 (97) 100 Room Air 98.3 03/17/18 20:00 2.0 Input & Output Intake and Output 03/18/18 07:00 Intake Total 1811.6 ml Output Total 2875 ml Balance -1063.4 ml Intake Oral 700 ml IV Total 1111.6 ml Output Urine Total 2875 ml # Bowel Movements 1 Physical Exam Physical Exam General appearance - alert, ill appearing, and in no distress Mental Status - alert, oriented to person, place, and time, affect appropriate to mood Head - normal Chest - clear to auscultation, no wheezes, rales or rhonchi, symmetric air entry Heart - S1 and S2 normal Abdomen - soft, nontender, nondistended, BS +, obese Neurological - no acute focal neurological deficit noted Musculoskeletal - no muscular tenderness noted Extremities - no pedal edema Skin - warm and dry Labs Laboratory Tests Test 03/16/18 20:50 03/16/18 22:49 03/16/18 23:30 03/17/18 00:42 White Blood Count 6.6 x10^3/uL (4.0-11.0) Red Blood Count 4.34 x10^6/uL (3.50-5.40) Hemoglobin 13.4 g/dL (12.0-15.5) Hematocrit 40.1 % (36.0-47.0) Mean Corpuscular Volume 92 fL (79-100) Mean Corpuscular Hemoglobin 31 pg (25-35) Mean Corpuscular Hemoglobin Concent 34 g/dL (31-37) Red Cell Distribution Width 12.7 % (11.5-14.5) Platelet Count 175 x10^3/uL (140-400) Neutrophils (%) (Auto) 71 % (31-73) Lymphocytes (%) (Auto) 20 % (24-48) Monocytes (%) (Auto) 7 % (0-9) Eosinophils (%) (Auto) 1 % (0-3) Basophils (%) (Auto) 1 % (0-3) Neutrophils # (Auto) 4.7 x10^3uL (1.8-7.7) Lymphocytes # (Auto) 1.3 x10^3/uL (1.0-4.8) Monocytes # (Auto) 0.5 x10^3/uL (0.0-1.1) Eosinophils # (Auto) 0.1 x10^3/uL (0.0-0.7) Basophils # (Auto) 0.0 x10^3/uL (0.0-0.2) Sodium Level 134 mmol/L (136-145) Potassium Level 4.1 mmol/L (3.5-5.1) Chloride Level 96 mmol/L (98-107) Carbon Dioxide Level 31 mmol/L (21-32) Anion Gap 7 (6-14) Blood Urea Nitrogen 26 mg/dL (7-20) Creatinine 1.6 mg/dL (0.6-1.0) Estimated GFR (Cockcroft-Gault) 38.8 BUN/Creatinine Ratio 16 (6-20) Glucose Level 454 mg/dL (70-99) Calcium Level 9.8 mg/dL (8.5-10.1) Magnesium Level 1.6 mg/dL (1.8-2.4) Total Bilirubin 0.2 mg/dL (0.2-1.0) Aspartate Amino Transf (AST/SGOT) 31 U/L (15-37) Alanine Aminotransferase (ALT/SGPT) 33 U/L (14-59) Alkaline Phosphatase 92 U/L (46-116) Troponin I Quantitative 0.487 ng/mL (0.000-0.055) 7.956 ng/mL (0.000-0.055) TL-Cgw-W-Type Natriuretic Peptide 157 pg/mL (0-124) Total Protein 8.4 g/dL (6.4-8.2) Albumin 4.3 g/dL (3.4-5.0) Albumin/Globulin Ratio 1.0 (1.0-1.7) Lipase 140 U/L (73-393) Glucose (Fingerstick) 322 mg/dL (70-99) 304 mg/dL (70-99) Test 03/17/18 01:49 03/17/18 03:30 03/17/18 06:15 03/17/18 07:24 Glucose (Fingerstick) 251 mg/dL (70-99) 180 mg/dL (70-99) White Blood Count 6.1 x10^3/uL (4.0-11.0) Red Blood Count 3.91 x10^6/uL (3.50-5.40) Hemoglobin 12.5 g/dL (12.0-15.5) Hematocrit 36.0 % (36.0-47.0) Mean Corpuscular Volume 92 fL (79-100) Mean Corpuscular Hemoglobin 32 pg (25-35) Mean Corpuscular Hemoglobin Concent 35 g/dL (31-37) Red Cell Distribution Width 12.7 % (11.5-14.5) Platelet Count 165 x10^3/uL (140-400) Neutrophils (%) (Auto) 56 % (31-73) Lymphocytes (%) (Auto) 33 % (24-48) Monocytes (%) (Auto) 9 % (0-9) Eosinophils (%) (Auto) 2 % (0-3) Basophils (%) (Auto) 1 % (0-3) Neutrophils # (Auto) 3.4 x10^3uL (1.8-7.7) Lymphocytes # (Auto) 2.0 x10^3/uL (1.0-4.8) Monocytes # (Auto) 0.5 x10^3/uL (0.0-1.1) Eosinophils # (Auto) 0.1 x10^3/uL (0.0-0.7) Basophils # (Auto) 0.1 x10^3/uL (0.0-0.2) Sodium Level 137 mmol/L (136-145) Potassium Level 3.9 mmol/L (3.5-5.1) Chloride Level 103 mmol/L (98-107) Carbon Dioxide Level 27 mmol/L (21-32) Anion Gap 7 (6-14) Blood Urea Nitrogen 24 mg/dL (7-20) Creatinine 1.3 mg/dL (0.6-1.0) Estimated GFR (Cockcroft-Gault) 49.3 Glucose Level 220 mg/dL (70-99) Hemoglobin A1c 9.5 % (4.8-5.6) Calcium Level 9.5 mg/dL (8.5-10.1) Troponin I Quantitative 10.623 ng/mL (0.000-0.055) Triglycerides Level 232 mg/dL (0-150) Cholesterol Level 180 mg/dL (0-200) LDL Cholesterol, Calculated 89 mg/dL (0-100) VLDL Cholesterol, Calculated 46 mg/dL (0-40) Non-HDL Cholesterol Calculated 135 mg/dL (0-129) HDL Cholesterol 45 mg/dL (40-60) Cholesterol/HDL Ratio 4.0 Heparin Anti-Xa Act, Unfractionated 0.41 IU/mL (0.30-0.70) Test 03/17/18 11:22 03/17/18 12:03 03/17/18 16:34 03/17/18 19:25 Glucose (Fingerstick) 199 mg/dL (70-99) 396 mg/dL (70-99) Prothrombin Time 12.4 SEC (11.7-14.0) Prothromb Time International Ratio 1.0 (0.8-1.1) Activated Partial Thromboplast Time 46 SEC (24-38) Troponin I Quantitative 4.791 ng/mL (0.000-0.055) Heparin Anti-Xa Act, Unfractionated 0.18 IU/mL (0.30-0.70) Test 03/17/18 20:47 03/18/18 02:30 Glucose (Fingerstick) 314 mg/dL (70-99) White Blood Count 6.6 x10^3/uL (4.0-11.0) Red Blood Count 4.20 x10^6/uL (3.50-5.40) Hemoglobin 13.1 g/dL (12.0-15.5) Hematocrit 38.6 % (36.0-47.0) Mean Corpuscular Volume 92 fL (79-100) Mean Corpuscular Hemoglobin 31 pg (25-35) Mean Corpuscular Hemoglobin Concent 34 g/dL (31-37) Red Cell Distribution Width 12.9 % (11.5-14.5) Platelet Count 179 x10^3/uL (140-400) Neutrophils (%) (Auto) 48 % (31-73) Lymphocytes (%) (Auto) 41 % (24-48) Monocytes (%) (Auto) 8 % (0-9) Eosinophils (%) (Auto) 3 % (0-3) Basophils (%) (Auto) 1 % (0-3) Neutrophils # (Auto) 3.2 x10^3uL (1.8-7.7) Lymphocytes # (Auto) 2.7 x10^3/uL (1.0-4.8) Monocytes # (Auto) 0.5 x10^3/uL (0.0-1.1) Eosinophils # (Auto) 0.2 x10^3/uL (0.0-0.7) Basophils # (Auto) 0.1 x10^3/uL (0.0-0.2) Heparin Anti-Xa Act, Unfractionated 0.68 IU/mL (0.30-0.70) Sodium Level 135 mmol/L (136-145) Potassium Level 4.0 mmol/L (3.5-5.1) Chloride Level 102 mmol/L (98-107) Carbon Dioxide Level 28 mmol/L (21-32) Anion Gap 5 (6-14) Blood Urea Nitrogen 20 mg/dL (7-20) Creatinine 1.2 mg/dL (0.6-1.0) Estimated GFR (Cockcroft-Gault) 54.1 Glucose Level 246 mg/dL (70-99) Calcium Level 9.5 mg/dL (8.5-10.1) Magnesium Level 1.3 mg/dL (1.8-2.4) Laboratory Tests Test 03/17/18 11:22 03/17/18 12:03 03/17/18 16:34 03/17/18 19:25 Glucose (Fingerstick) 199 mg/dL (70-99) 396 mg/dL (70-99) Prothrombin Time 12.4 SEC (11.7-14.0) Prothromb Time International Ratio 1.0 (0.8-1.1) Activated Partial Thromboplast Time 46 SEC (24-38) Troponin I Quantitative 4.791 ng/mL (0.000-0.055) Heparin Anti-Xa Act, Unfractionated 0.18 IU/mL (0.30-0.70) Test 03/17/18 20:47 03/18/18 02:30 Glucose (Fingerstick) 314 mg/dL (70-99) White Blood Count 6.6 x10^3/uL (4.0-11.0) Red Blood Count 4.20 x10^6/uL (3.50-5.40) Hemoglobin 13.1 g/dL (12.0-15.5) Hematocrit 38.6 % (36.0-47.0) Mean Corpuscular Volume 92 fL (79-100) Mean Corpuscular Hemoglobin 31 pg (25-35) Mean Corpuscular Hemoglobin Concent 34 g/dL (31-37) Red Cell Distribution Width 12.9 % (11.5-14.5) Platelet Count 179 x10^3/uL (140-400) Neutrophils (%) (Auto) 48 % (31-73) Lymphocytes (%) (Auto) 41 % (24-48) Monocytes (%) (Auto) 8 % (0-9) Eosinophils (%) (Auto) 3 % (0-3) Basophils (%) (Auto) 1 % (0-3) Neutrophils # (Auto) 3.2 x10^3uL (1.8-7.7) Lymphocytes # (Auto) 2.7 x10^3/uL (1.0-4.8) Monocytes # (Auto) 0.5 x10^3/uL (0.0-1.1) Eosinophils # (Auto) 0.2 x10^3/uL (0.0-0.7) Basophils # (Auto) 0.1 x10^3/uL (0.0-0.2) Heparin Anti-Xa Act, Unfractionated 0.68 IU/mL (0.30-0.70) Sodium Level 135 mmol/L (136-145) Potassium Level 4.0 mmol/L (3.5-5.1) Chloride Level 102 mmol/L (98-107) Carbon Dioxide Level 28 mmol/L (21-32) Anion Gap 5 (6-14) Blood Urea Nitrogen 20 mg/dL (7-20) Creatinine 1.2 mg/dL (0.6-1.0) Estimated GFR (Cockcroft-Gault) 54.1 Glucose Level 246 mg/dL (70-99) Calcium Level 9.5 mg/dL (8.5-10.1) Magnesium Level 1.3 mg/dL (1.8-2.4) Meds Current Medications Acetaminophen/ Hydrocodone Bitart (Lortab 7.5/325) 1 tab PRN Q4HRS PRN PO MODERATE PAIN Last administered on 03/18/18 04:49; Start 03/17/18 at 09:30 Amlodipine Besylate (Norvasc) 5 mg DAILY PO Last administered on 03/17/18 14: 42; Start 03/17/18 at 10:00 Aspirin (Amanda Aspirin) 325 mg DAILY PO ; Start 03/17/18 at 09:00; Status UNV Atorvastatin Calcium (Lipitor) 20 mg QHS PO Last administered on 03/17/18 21: 26; Start 03/17/18 at 21:00 Cetirizine HCl (ZyrTEC) 10 mg DAILY PO ; Start 03/17/18 at 10:00 Cetirizine HCl (ZyrTEC) 10 mg HS PO Last administered on 03/17/18 21:26; Start 03/17/18 at 21:00 Gabapentin (Neurontin) 300 mg TID PO Last administered on 03/17/18 21:26; Start 03/17/18 at 09:15 Hydrochlorothiazide (Microzide) 12.5 mg DAILY PO Last administered on 11:56; Start 03/17/18 at 11:00 Info (Anti-Coagulation Monitoring By Pharmacy) 1 each PRN DAILY PRN MC SEE COMMENTS Last administered on 03/17/18 11:28; Start 03/17/18 at 11:30 Insulin Glargine (Lantus) 30 units BID SQ Last administered on 03/17/18at 21:40 ; Start 03/17/18 at 09:30 Insulin Human Lispro (HumaLOG) 5 units 1X ONCE SQ Last administered on 17:06; Start 03/17/18 at 16:45; Stop 03/17/18 at 16:48; Status DC Lisinopril (Prinivil) 10 mg DAILY PO ; Start 03/17/18 at 09:00; Stop 03/17/18 at 09:00; Status DC Lisinopril (Prinivil) 30 mg BID PO Last administered on 03/17/18 21:28; Start 03/17/18 at 10:00 Metoprolol Succinate (Toprol Xl) 100 mg DAILY PO ; Start 03/17/18 at 10:00; Stop 03/17/18 at 10:00; Status DC Metoprolol Tartrate (Lopressor) 12.5 mg BID PO ; Start 03/17/18 at 09:00; Stop 03/17/18 at 09:00; Status DC Metoprolol Tartrate (Lopressor) 100 mg BID PO Last administered on 03/17/18at 21 :29; Start 03/17/18 at 11:00 Montelukast Sodium (Singulair) 10 mg DAILY PO ; Start 03/17/18 at 10:00 Multivitamins (Thera M Plus) 1 tab DAILY PO ; Start 03/17/18 at 09:30 Non-Formulary Medication (Gabapentin (Neurontin)) 300 mg TID PO ; Start at 09:00; Stop 03/17/18 at 09:18; Status DC Non-Formulary Medication (Multivits-Min/ Fa/Lycopene/Lut (Centrum Silver Tablet) ) 1 tab DAILY PO ; Start 03/17/18 at 09:00; Stop 03/17/18 at 09:20; Status DC Pantoprazole Sodium (Protonix) 40 mg DAILYAC PO Last administered on 03/17/18at 11:56; Start 03/17/18 at 11:30 Senna/Docusate Sodium (Senna Plus) 1 tab BID PO Last administered on 03/17/18at 21:37; Start 03/17/18 at 09:00 Assessment Assessment FINAL DIAGNOSIS NSTEMI with h/o CAD PTCA RCA 2015 HTN DM II neuropathy CKD nursing home insulin not controlled with hyperlipidemia HTN CKD II DM hypertensive renal disease Hyperlipidemia h/o PAD PAD with 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 Mg - 1gm IV CKD II - office Fe B/C Home insulin: Lantus 87u bid Novolog 20u tid AC Please see orders for further plan of care. For more details regarding further plans, please refer to the orders. 03/18/18 NSTEMI - ECHO EF 55-60% tr AR MR TR - Troponin trending down - - CC today DM II - not controlled - Lantus increased to 50u bid - SSI adjusted to mod intensity Mg - 1.3 - Mg 4gm IV x1, begin Mag Ox 400mg bid CKD II - stable HTN - improved with home meds For further plan of care, please see the orders. Plan Plan For more details regarding further plans, please refer to the orders. STEF WELCH MD 03/18/18 0954: IM PROGRESS NOTES- Assessment Assessment The patient was seen and examined by me. Chart reviewed and plan of care formulated. Discussed with, reviewed and agree with MARKETING OPERATIONS SPECIALIST's notes, plan of care and orders with modifications as necessary. For more details regarding further plans, please refer to the orders. NEL MATTHEWS APRN Mar 18, 2018 08:14 STEF WELCH MD Mar 18, 2018 09:54
[2018-03-18] MEDS ORDERED: HYDR12.53 PO (08:18)
[2018-03-18] MEDS: INSULIN LISPRO 300 UNITS/3 ML INSULN.PEN. SQ SCH ×2 (09:00→16:59)
[2018-03-18] MEDS ORDERED: MAGNESIUM SULFATE 4GM 100 ML IV ONE (09:00)
[2018-03-18] MEDS: ASPIRIN 325 MG TABLET PO SCH (09:07)
[2018-03-18] MEDS: PANTOPRAZOLE 40 MG TABLET.DR. PO SCH (09:07)
[2018-03-18] MEDS: GABAPENTIN 300 MG CAPSULE. PO SCH ×3 (09:07→20:05)
[2018-03-18] MEDS: METOPROLOL TART IMMED RELEASE 50 MG TABLET. PO SCH ×2 (09:08→20:05)
[2018-03-18] MEDS: hydroCHLOROthiazide 12.5 MG CAPSULE PO SCH (09:08)
[2018-03-18] MEDS: amLODIPine BESYLATE 5 MG TABLET PO SCH (09:08)
[2018-03-18] MEDS: LISINOPRIL 10 MG TABLET PO SCH ×2 (09:09→20:06)
[2018-03-18] MEDS: INSULIN GLARGINE 300 UNITS/3 ML INSULN.PEN. SQ SCH ×2 (09:14→20:22)
[2018-03-18] MEDS ORDERED: HEPARIN for IV BOLUS 10,000 UNIT/10 ML VIAL. ONE (10:13)
[2018-03-18] MEDS ORDERED: MIDAZOLAM HCL/PF 2 MG/2 ML VIAL. ONE ×2 (10:13→10:41)
[2018-03-18] MEDS ORDERED: fentaNYL PF VIAL 100 MCG/2 ML VIAL ONE (10:13)
[2018-03-18] MEDS ORDERED: VERAPAMIL 5 MG/2 ML VIAL. ONE (10:14)
[2018-03-18] MEDS ORDERED: NITROGLYCERIN 200 MCG/2 ML SYRINGE FOR CATH/VASC LAB. ONE (10:14)
[2018-03-18] MEDS ORDERED: HEPARIN for IV BOLUS 10,000 UNIT/10 ML VIAL. IART ONE (11:00)
[2018-03-18] MEDS ORDERED: LIDOCAINE 1% PF 30 ML VIAL. INJ ONE (11:00)
[2018-03-18] MEDS ORDERED: fentaNYL PF VIAL 100 MCG/2 ML VIAL IV ONE (11:00)
[2018-03-18] MEDS ORDERED: VERAPAMIL 5 MG/2 ML VIAL. IART ONE (11:00)
[2018-03-18] MEDS ORDERED: IODIXANOL 320 MG/ML 100 ML VIAL. IART ONE (11:00)
[2018-03-18] MEDS ORDERED: NITROGLYCERIN 200 MCG/2 ML SYRINGE FOR CATH/VASC LAB. IART ONE (11:00)
[2018-03-18] MEDS ORDERED: MIDAZOLAM HCL/PF 2 MG/2 ML VIAL. IV ONE (11:00)
[2018-03-18] MEDS ORDERED: CONTRAST GIVEN. MC PRN (11:15)
--- NOTE | 2018-03-18 11:55 | PDOC ---
MODERATE SEDATION ASSESSMENT RISKS/ALTERNATIVES Risks/Alternatives Risks and alternatives of this type of sedation and procedure discussed with: RISK/ALTERNATIVES: Patient H & P ON CHART H & P H & P on chart and reviewed for co-morbid conditions and appropriate labs. H&P ON CHART: Yes STATUS PREG STATUS ASSESSED: N/A MEDS/ALLERGIES REVIEWED Meds/Allergies Reviewed Medications and Allergies including time and route of recently administered narcotics and sedatives. MEDS/ALLERGIES REVIEWED: Yes ASA RATING ASA RATING: II AIRWAY ASSESSMENT Airway Assessment Airway patency, oral function limitations, presence of caps, crowns, dentures, partials, and ability to extend neck assessed. AIRWAY ASSESSMENT: Yes MALLAMPATI SCORE MALLAMPATI SCORE: II PRE-SEDATION ASSESSMENT PRE-SEDATION ASSESSMENT: Yes RUSSELL YOUNG MD Mar 18, 2018 11:55
--- NOTE | 2018-03-18 12:08 | CARD ---
MR#: [id number] Date of Study: 03/18/2018 Ordering Physician: MARYSE PUENTE, Referring Physician: STEF WELCH Tech: RT Rosalie (R) APPROVED REPORT Technologist: RT Rosalie (R) Nurse: Loraine Austin R.N. Procedure(s) performed: Left heart catheterization, selective coronary angiography and left ventricul ography via right transradial approach Moderate Sedation: 34 min INDICATION The indication(s) include : non-STEMI . PROCEDURE NARRATIVE After explaining the risks, benefits and alternative options, informed consent was obtained from shaka ent. Patient was brought to the cardiac Business Consultant and right wrist was prepped and draped in the usual fashion after confirming a positive modified Jordan's test. Arterial access was obtained in the righ t radial artery and a 6 [place]ian sheath was inserted. 6 [place] JL 3.5 and 6 [place] 3 DRC catheters wer e used to perform selective angiography of the left and right coronary arteries. 6 [place]ian pigtail ca theter was used to perform left ventriculography. Patient tolerated the procedure well. Hemostasis was achieved using TR band. There were no immediate complications. The following findings were note d. FINDINGS 1. Hemodynamics: Left ventricular end-diastolic pressure of 24 mmHg consistent with acute on chronic diastolic heart failure. No pullback gradient across the aortic valve. 2. Left ventriculography: Akinetic posterobasal wall with ejection fraction estimated at 55%. No si gnificant mitral regurgitation seen. 3. Coronary angiography: a. The left main coronary artery arose from the left sinus of Valsalva, gave rise to the left anteri or descending and left circumflex arteries and did not show any significant stenosis. b. The left anterior descending artery did not show any significant stenosis in the proximal and mid segments. The distal and apical segments showed moderate diffuse disease that was described in prior cardiac catheterization. c. The left circumflex artery showed severe diffuse disease involving the mid and distal segments. T he first obtuse marginal branch showed chronic total occlusions. The second obtuse marginal branch sh owed moderate diffuse disease. d. The right coronary artery was a dominant vessel arising from the right sinus of Valsalva that graciela wed severe diffuse disease in the distal segment and the posterolateral branch. The previously angiop lastied midsegment is patent. Conclusion 1. Diffuse distal segment disease involving all the 3 coronary arteries as described above 2. Akinetic posterobasal wall with ejection fraction estimated at 55%. Recommendations Patient did not have any critical discrete lesions needing intervention. She had severe diffuse disea se distally in all the coronary arteries and hence not a good candidate for coronary artery bypass douglas rgery as well due to lack of good targets. Recommend optimizing medical management. Signed by : Hector Soliman, Electronically Approved : 03/18/2018 12:07:17
[2018-03-18] MEDS: MONTELUKAST SODIUM 10 MG TABLET. PO SCH (13:01)
[2018-03-18] MEDS: SENNOSIDES/DOCUSATE 8.6/50MG TABLET. PO SCH ×2 (13:01→20:05)
[2018-03-18] MEDS: CLOPIDOGREL BISULFATE 75 MG TABLET PO SCH (13:01)
[2018-03-18] MEDS: MULTIVITAMIN with MINERAL TABLET. PO SCH (13:01)
[2018-03-18] MEDS: ISOSORBIDE MONONITRATE ER 30 MG TAB.ER.24H PO SCH (13:02)
[2018-03-18] MEDS: MAGNESIUM OXIDE 400 MG TABLET PO SCH ×2 (13:05→20:05)
[2018-03-18] MEDS: ANTI-COAG MONITOR BY PHARMACY. MC PRN (15:13)
[2018-03-18] MEDS ORDERED: fentaNYL PF VIAL 100 MCG/2 ML VIAL IV PRN (15:45)
[2018-03-18] MEDS: IV 1/2 NORMAL SALINE 1,000 ML IV SCH (17:02)
[2018-03-18] MEDS: ATORVASTATIN CALCIUM 20 MG TABLET PO SCH (20:05)
[2018-03-18] MEDS: CETIRIZINE HCL 10 MG TABLET. PO SCH (20:05)
[2018-03-19 03:20] VITALS: BP 142/68
[2018-03-19] MEDS: IV 1/2 NORMAL SALINE 1,000 ML IV SCH (05:40)
[2018-03-19 07:00] VITALS: BP 123/71
[2018-03-19] MEDS: INSULIN LISPRO 300 UNITS/3 ML INSULN.PEN. SQ SCH (07:30)
--- NOTE | 2018-03-19 07:48 | PDOC3 ---
NEL MATTHEWS EVENTS INTERN 03/19/18 0748: IM DISCHARGE & PROGRESS NOTES Date of Admission Date of Admission Date of Admission: Mar 16, 2018 at 22:27 Date of Discharge Date of Discharge 03/19/18 Primary Diagnosis Primary Diagnosis FINAL DIAGNOSIS NSTEMI with h/o CAD PTCA RCA 2015 HTN DM II neuropathy CKD manager intermediate insulin not controlled with hyperlipidemia HTN CKD II DM hypertensive renal disease Hyperlipidemia h/o PAD PAD with h/o TAPE EDGE MACHINE OPERATOR to right SFA & atherectomy/TAPE EDGE MACHINE OPERATOR to left SFA Consults Consults Raphael Waters MD Procedures Procedures PROCEDURE: Left Heart Catheterization &LV MR#: [id number] Date of Study: 03/18/2018 Ordering Physician: MARYSE PUENTE, Referring Physician: STEF WELCH Tech: RT Rosalie (R) APPROVED REPORT Technologist: RT Rosalie (R) Nurse: Loraine Austin R.N. Procedure(s) performed: Left heart catheterization, selective coronary angiography and left ventriculography via right transradial approach Moderate Sedation: 34 min INDICATION The indication(s) include : non-STEMI . PROCEDURE NARRATIVE After explaining the risks, benefits and alternative options, informed consent was obtained from patient. Patient was brought to the cardiac Die Repair Machinist and right wrist was prepped and draped in the usual fashion after confirming a positive modified Jordan's test. Arterial access was obtained in the right radial artery and a 6 Wallisian sheath was inserted. 6 Wallisian JL 3.5 and 6 Wallisian 3 DRC catheters were used to perform selective angiography of the left and right coronary arteries. 6 Wallisian pigtail catheter was used to perform left ventriculography. Patient tolerated the procedure well. Hemostasis was achieved using TR band. There were no immediate complications. The following findings were noted. FINDINGS 1. Hemodynamics: Left ventricular end-diastolic pressure of 24 mmHg consistent with acute on chronic diastolic heart failure. No pullback gradient across the aortic valve. 2. Left ventriculography: Akinetic posterobasal wall with ejection fraction estimated at 55%. No significant mitral regurgitation seen. 3. Coronary angiography: a. The left main coronary artery arose from the left sinus of Valsalva, gave rise to the left anterior descending and left circumflex arteries and did not show any significant stenosis. b. The left anterior descending artery did not show any significant stenosis in the proximal and mid segments. The distal and apical segments showed moderate diffuse disease that was described in prior cardiac catheterization. c. The left circumflex artery showed severe diffuse disease involving the mid and distal segments. The first obtuse marginal branch showed chronic total occlusions. The second obtuse marginal branch showed moderate diffuse disease. d. The right coronary artery was a dominant vessel arising from the right sinus of Valsalva that showed severe diffuse disease in the distal segment and the posterolateral branch. The previously angioplastied midsegment is patent. Conclusion 1. Diffuse distal segment disease involving all the 3 coronary arteries as described above 2. Akinetic posterobasal wall with ejection fraction estimated at 55%. Recommendations Patient did not have any critical discrete lesions needing intervention. She had severe diffuse disease distally in all the coronary arteries and hence not a good candidate for coronary artery bypass surgery as well due to lack of good targets. Recommend optimizing medical management. Signed by : Russell Young, Electronically Approved : 03/18/2018 12:07:17 DICTATED and SIGNED BY: RUSSELL YOUNG MD DATE: 03/18/18 1204 Labs Labs Laboratory Tests Test 03/16/18 20:50 03/16/18 22:49 03/16/18 23:30 03/17/18 00:42 White Blood Count 6.6 x10^3/uL (4.0-11.0) Red Blood Count 4.34 x10^6/uL (3.50-5.40) Hemoglobin 13.4 g/dL (12.0-15.5) Hematocrit 40.1 % (36.0-47.0) Mean Corpuscular Volume 92 fL (79-100) Mean Corpuscular Hemoglobin 31 pg (25-35) Mean Corpuscular Hemoglobin Concent 34 g/dL (31-37) Red Cell Distribution Width 12.7 % (11.5-14.5) Platelet Count 175 x10^3/uL (140-400) Neutrophils (%) (Auto) 71 % (31-73) Lymphocytes (%) (Auto) 20 % (24-48) Monocytes (%) (Auto) 7 % (0-9) Eosinophils (%) (Auto) 1 % (0-3) Basophils (%) (Auto) 1 % (0-3) Neutrophils # (Auto) 4.7 x10^3uL (1.8-7.7) Lymphocytes # (Auto) 1.3 x10^3/uL (1.0-4.8) Monocytes # (Auto) 0.5 x10^3/uL (0.0-1.1) Eosinophils # (Auto) 0.1 x10^3/uL (0.0-0.7) Basophils # (Auto) 0.0 x10^3/uL (0.0-0.2) Sodium Level 134 mmol/L (136-145) Potassium Level 4.1 mmol/L (3.5-5.1) Chloride Level 96 mmol/L (98-107) Carbon Dioxide Level 31 mmol/L (21-32) Anion Gap 7 (6-14) Blood Urea Nitrogen 26 mg/dL (7-20) Creatinine 1.6 mg/dL (0.6-1.0) Estimated GFR (Cockcroft-Gault) 38.8 BUN/Creatinine Ratio 16 (6-20) Glucose Level 454 mg/dL (70-99) Calcium Level 9.8 mg/dL (8.5-10.1) Magnesium Level 1.6 mg/dL (1.8-2.4) Total Bilirubin 0.2 mg/dL (0.2-1.0) Aspartate Amino Transf (AST/SGOT) 31 U/L (15-37) Alanine Aminotransferase (ALT/SGPT) 33 U/L (14-59) Alkaline Phosphatase 92 U/L (46-116) Troponin I Quantitative 0.487 ng/mL (0.000-0.055) 7.956 ng/mL (0.000-0.055) JR-Sff-T-Type Natriuretic Peptide 157 pg/mL (0-124) Total Protein 8.4 g/dL (6.4-8.2) Albumin 4.3 g/dL (3.4-5.0) Albumin/Globulin Ratio 1.0 (1.0-1.7) Lipase 140 U/L (73-393) Glucose (Fingerstick) 322 mg/dL (70-99) 304 mg/dL (70-99) Test 03/17/18 01:49 03/17/18 03:30 03/17/18 06:15 03/17/18 07:24 Glucose (Fingerstick) 251 mg/dL (70-99) 180 mg/dL (70-99) White Blood Count 6.1 x10^3/uL (4.0-11.0) Red Blood Count 3.91 x10^6/uL (3.50-5.40) Hemoglobin 12.5 g/dL (12.0-15.5) Hematocrit 36.0 % (36.0-47.0) Mean Corpuscular Volume 92 fL (79-100) Mean Corpuscular Hemoglobin 32 pg (25-35) Mean Corpuscular Hemoglobin Concent 35 g/dL (31-37) Red Cell Distribution Width 12.7 % (11.5-14.5) Platelet Count 165 x10^3/uL (140-400) Neutrophils (%) (Auto) 56 % (31-73) Lymphocytes (%) (Auto) 33 % (24-48) Monocytes (%) (Auto) 9 % (0-9) Eosinophils (%) (Auto) 2 % (0-3) Basophils (%) (Auto) 1 % (0-3) Neutrophils # (Auto) 3.4 x10^3uL (1.8-7.7) Lymphocytes # (Auto) 2.0 x10^3/uL (1.0-4.8) Monocytes # (Auto) 0.5 x10^3/uL (0.0-1.1) Eosinophils # (Auto) 0.1 x10^3/uL (0.0-0.7) Basophils # (Auto) 0.1 x10^3/uL (0.0-0.2) Sodium Level 137 mmol/L (136-145) Potassium Level 3.9 mmol/L (3.5-5.1) Chloride Level 103 mmol/L (98-107) Carbon Dioxide Level 27 mmol/L (21-32) Anion Gap 7 (6-14) Blood Urea Nitrogen 24 mg/dL (7-20) Creatinine 1.3 mg/dL (0.6-1.0) Estimated GFR (Cockcroft-Gault) 49.3 Glucose Level 220 mg/dL (70-99) Hemoglobin A1c 9.5 % (4.8-5.6) Calcium Level 9.5 mg/dL (8.5-10.1) Troponin I Quantitative 10.623 ng/mL (0.000-0.055) Triglycerides Level 232 mg/dL (0-150) Cholesterol Level 180 mg/dL (0-200) LDL Cholesterol, Calculated 89 mg/dL (0-100) VLDL Cholesterol, Calculated 46 mg/dL (0-40) Non-HDL Cholesterol Calculated 135 mg/dL (0-129) HDL Cholesterol 45 mg/dL (40-60) Cholesterol/HDL Ratio 4.0 Heparin Anti-Xa Act, Unfractionated 0.41 IU/mL (0.30-0.70) Test 03/17/18 11:22 03/17/18 12:03 03/17/18 16:34 03/17/18 19:25 Glucose (Fingerstick) 199 mg/dL (70-99) 396 mg/dL (70-99) Prothrombin Time 12.4 SEC (11.7-14.0) Prothromb Time International Ratio 1.0 (0.8-1.1) Activated Partial Thromboplast Time 46 SEC (24-38) Troponin I Quantitative 4.791 ng/mL (0.000-0.055) Heparin Anti-Xa Act, Unfractionated 0.18 IU/mL (0.30-0.70) Test 03/17/18 20:47 03/18/18 02:30 03/18/18 07:36 03/18/18 11:53 Glucose (Fingerstick) 314 mg/dL (70-99) 290 mg/dL (70-99) 267 mg/dL (70-99) White Blood Count 6.6 x10^3/uL (4.0-11.0) Red Blood Count 4.20 x10^6/uL (3.50-5.40) Hemoglobin 13.1 g/dL (12.0-15.5) Hematocrit 38.6 % (36.0-47.0) Mean Corpuscular Volume 92 fL (79-100) Mean Corpuscular Hemoglobin 31 pg (25-35) Mean Corpuscular Hemoglobin Concent 34 g/dL (31-37) Red Cell Distribution Width 12.9 % (11.5-14.5) Platelet Count 179 x10^3/uL (140-400) Neutrophils (%) (Auto) 48 % (31-73) Lymphocytes (%) (Auto) 41 % (24-48) Monocytes (%) (Auto) 8 % (0-9) Eosinophils (%) (Auto) 3 % (0-3) Basophils (%) (Auto) 1 % (0-3) Neutrophils # (Auto) 3.2 x10^3uL (1.8-7.7) Lymphocytes # (Auto) 2.7 x10^3/uL (1.0-4.8) Monocytes # (Auto) 0.5 x10^3/uL (0.0-1.1) Eosinophils # (Auto) 0.2 x10^3/uL (0.0-0.7) Basophils # (Auto) 0.1 x10^3/uL (0.0-0.2) Heparin Anti-Xa Act, Unfractionated 0.68 IU/mL (0.30-0.70) Sodium Level 135 mmol/L (136-145) Potassium Level 4.0 mmol/L (3.5-5.1) Chloride Level 102 mmol/L (98-107) Carbon Dioxide Level 28 mmol/L (21-32) Anion Gap 5 (6-14) Blood Urea Nitrogen 20 mg/dL (7-20) Creatinine 1.2 mg/dL (0.6-1.0) Estimated GFR (Cockcroft-Gault) 54.1 Glucose Level 246 mg/dL (70-99) Calcium Level 9.5 mg/dL (8.5-10.1) Magnesium Level 1.3 mg/dL (1.8-2.4) Test 03/18/18 16:43 03/18/18 20:11 Glucose (Fingerstick) 217 mg/dL (70-99) 194 mg/dL (70-99) Medications Medications Medications reviewed and reconciled for discharge. Brief hospital course Brief hospital course This 67 year old female who presented with chest pain was admitted. The following is a summary of her treatment: PLAN: 03/17/18 NSTEMI - EKG in ER non specific changes - Troponin #3 10.623- admit 0.487 - Hep gtt - NPO for CC - cardiology consulted - possible CC today DM II - BS ER 454- 10u Humulin R -09/2017 Hba1c 10.2 - noncompliant with diet - has not been controlled for some time. Mg - 1gm IV CKD II - office Sep B/C Home insulin: Lantus 87u bid Novolog 20u tid AC Please see orders for further plan of care. For more details regarding further plans, please refer to the orders. 03/18/18 NSTEMI - ECHO EF 55-60% tr AR MR TR - Troponin trending down -4/791 - CC today DM II - not controlled - Lantus increased to 50u bid - SSI adjusted to mod intensity Mg - 1.3 - Mg 4gm IV x1, begin Mag Ox 400mg bid CKD II - stable HTN - improved with home meds For further plan of care, please see the orders. 03/19/18 NSTEMI - ECHO EF 55-60% tr AR MR TR - Troponin trending down -4/791 - CC medical management - not candidate for OHS due to distal seg disease all 3 coronary arteries. DM II - not controlled - 194-290 - resume home med doses Mg - 1.3 - Mg 4gm IV x1, begin Mag Ox 400mg bid - Mg today pending CKD II - stable HTN - improved with home meds constipation - see orders. CC: Conclusion 1. Diffuse distal segment disease involving all the 3 coronary arteries as described above 2. Akinetic posterobasal wall with ejection fraction estimated at 55%. Recommendations Patient did not have any critical discrete lesions needing intervention. She had severe diffuse disease distally in all the coronary arteries and hence not a good candidate for coronary artery bypass surgery as well due to lack of good targets. Recommend optimizing medical management. For more details regarding the past history, family history, social history, surgical history and other details, please refer to History and Physical. Subjective c/o constipation, no BM x 2 day Objective no distress Vitals Vital Signs Date Time Temp Pulse Resp B/P (MAP) Pulse Ox O2 Delivery O2 Flow Rate FiO2 03/19/18 03:20 98.3 65 18 142/68 (92) 98 Room Air 98.3 03/18/18 14:05 2.0 Physical Exam General appearance - alert, well appearing, and in no distress Mental Status - alert, oriented to person, place, and time, affect appropriate to mood Head - normal Chest - clear to auscultation, no wheezes, rales or rhonchi, symmetric air entry Heart - S1 and S2 normal Abdomen - soft, nontender, nondistended, BS +, obese Neurological - no acute focal neurological deficit noted Musculoskeletal - no muscular tenderness noted Extremities - no pedal edema Skin - warm and dry Medications Medications reviewed. Allergy Allergies Coded Allergies Type Severity Reaction Last Updated Verified No Known Drug Allergies 05/13/16 No Follow up Saturday Disposition: Home Comments Discharge Management - 35 minutes. For other details please refer to discharge instructions STEF WELCH MD 03/19/18 1002: IM DISCHARGE & PROGRESS NOTES Brief hospital course Brief hospital course The patient was seen and examined by me. Chart reviewed and plan of care formulated. Discussed with, reviewed and agree with INSTRUCTOR INDUSTRIAL DESIGN's notes, plan of care and orders with modifications as necessary. Discharge Management - 35 minutes. see in office on Saturday. NEL MATTHEWS APRN Mar 19, 2018 07:48 STEF WELCH MD Mar 19, 2018 10:02
[2018-03-19] MEDS ORDERED: ISOS30TA4 PO (07:58)
[2018-03-19] MEDS ORDERED: SODIUM PHOSPHATES 19/7GM 133 ML ENEMA. PR PRN (08:00)
[2018-03-19] MEDS ORDERED: BISACODYL 10 MG SUPP.RECT. PR PRN (08:00)
[2018-03-19] MEDS ORDERED: MAGNESIUM HYDROXIDE 2,400 MG/30 ML ORAL.SUSP. PO PRN (08:00)
[2018-03-19] MEDS ORDERED: BISACODYL 5 MG TABLET.DR. PO PRN (08:00)
[2018-03-19] MEDS: CLOPIDOGREL BISULFATE 75 MG TABLET PO SCH (08:43)
[2018-03-19] MEDS: hydroCHLOROthiazide 12.5 MG CAPSULE PO SCH (08:43)
[2018-03-19] MEDS: MONTELUKAST SODIUM 10 MG TABLET. PO SCH (08:43)
[2018-03-19] MEDS: PANTOPRAZOLE 40 MG TABLET.DR. PO SCH (08:43)
[2018-03-19] MEDS: GABAPENTIN 300 MG CAPSULE. PO SCH (08:43)
[2018-03-19] MEDS: MAGNESIUM OXIDE 400 MG TABLET PO SCH (08:44)
[2018-03-19] MEDS: MULTIVITAMIN with MINERAL TABLET. PO SCH (08:44)
[2018-03-19] MEDS: ASPIRIN 325 MG TABLET PO SCH (08:44)
[2018-03-19] MEDS: SENNOSIDES/DOCUSATE 8.6/50MG TABLET. PO SCH (08:44)
[2018-03-19] MEDS: amLODIPine BESYLATE 5 MG TABLET PO SCH (08:44)
[2018-03-19] MEDS: ISOSORBIDE MONONITRATE ER 30 MG TAB.ER.24H PO SCH (08:45)
[2018-03-19] MEDS: METOPROLOL TART IMMED RELEASE 50 MG TABLET. PO SCH (08:45)
[2018-03-19 08:46] VITALS: BP 123/71
[2018-03-19] MEDS: LISINOPRIL 10 MG TABLET PO SCH (08:46)
[2018-03-19] MEDS: INSULIN GLARGINE 300 UNITS/3 ML INSULN.PEN. SQ SCH (08:53)
[2018-03-19 09:35] LABS: BASO % 1 % (0-3); EOS # 0.2 x10^3/uL (0.0-0.7); EOS % 3 % (0-3); HEMATOCRIT 39.5 % (36.0-47.0); HEMOGLOBIN 13.3 g/dL (12.0-15.5); LYMPH # 1.3 x10^3/uL (1.0-4.8); LYMPH % 24 % (24-48); MEAN CORPUSCULAR HEMOGLOBIN 31 pg (25-35); MEAN CORPUSCULAR HGB CONC 34 g/dL (31-37); MEAN CORPUSCULAR VOLUME 92 fL (79-100); MONO # 0.6 x10^3/uL (0.0-1.1); MONO % 10 % (0-9); NEUT # 3.5 x10^3uL (1.8-7.7); NEUT % 62 % (31-73); PLATELET COUNT 172 x10^3/uL (140-400); RED BLOOD COUNT 4.29 x10^6/uL (3.50-5.40); RED CELL DISTRIBUTION WIDTH 12.8 % (11.5-14.5); WHITE BLOOD COUNT 5.6 x10^3/uL (4.0-11.0)
[2018-03-19 09:49] LABS: CALCIUM 9.7 mg/dL (8.5-10.1); CREATININE 1.6 mg/dL (0.6-1.0); GFR 38.8; POTASSIUM 4.2 mmol/L (3.5-5.1)
== END 2018-03-19 11:00 | disposition home or self-care (01) | DRG 280 ==
LOC: ER 20:31 → 2 NORTH 22:27
PROVIDERS: ADMIT Internal Medicine; ATTEND Internal Medicine
PROC: 4A023N7 Measurement of Cardiac Sampling and Pressure, Left Heart, Percutaneous Approach (ICD-10-PCS; principal; 2018-03-18)
PROC: B2151ZZ Fluoroscopy of Left Heart using Low Osmolar Contrast (ICD-10-PCS; 2018-03-18)
PROC: B2111ZZ Fluoroscopy of Multiple Coronary Arteries using Low Osmolar Contrast (ICD-10-PCS; 2018-03-18)
DX: I21.4 Non-ST elevation (NSTEMI) myocardial infarction (principal); I50.33 Acute on chronic diastolic (congestive) heart failure; I13.0 Hypertensive heart and chronic kidney disease with heart failure and stage 1 through stage 4 chronic kidney disease, or unspecified chronic kidney disease; Z68.41 Body mass index [BMI] 40.0-44.9, adult; E11.22 Type 2 diabetes mellitus with diabetic chronic kidney disease; E11.319 Type 2 diabetes mellitus with unspecified diabetic retinopathy without macular edema; E11.40 Type 2 diabetes mellitus with diabetic neuropathy, unspecified; E66.9 Obesity, unspecified; E78.5 Hyperlipidemia, unspecified; I25.10 Atherosclerotic heart disease of native coronary artery without angina pectoris; K21.9 Gastro-esophageal reflux disease without esophagitis; E11.51 Type 2 diabetes mellitus with diabetic peripheral angiopathy without gangrene; K59.00 Constipation, unspecified; N18.2 Chronic kidney disease, stage 2 (mild); J30.9 Allergic rhinitis, unspecified; E11.65 Type 2 diabetes mellitus with hyperglycemia; Z79.4 Long term (current) use of insulin; Z79.82 Long term (current) use of aspirin; Z82.49 Family history of ischemic heart disease and other diseases of the circulatory system; Z83.3 Family history of diabetes mellitus; Z87.891 Personal history of nicotine dependence; Z98.61 Coronary angioplasty status; I25.2 Old myocardial infarction; Z91.11 Patient's noncompliance with dietary regimen
CPT/HCPCS: 36415; 71045; 80048; 80053; 80061; 82962; 83036; 83690; 83735; 83880; 84484; 85025; 85520; 85610; 85730; 93005; 93306; 93458; 96365; 96376; 99152; 99153; C1769; C1892; J1644; J1815; J2250; J3010; J3475; J3490; J7030; 99285-25